=== PATIENT | female | born 1985 | race Caucasian/White ===

== ENCOUNTER 2016-07-15 17:42 | Emergency (ER) | payer OTHER ==
--- NOTE | 2016-07-15 18:26 | ERPHSYRPT ---
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 MOTHER IN ROOM. Timing/Duration: week(s) (07/05) Quality: sharpness Head Pain Location: frontal, temporal, parietal Severity of Pain-Max: severe Severity of Pain-Current: severe Recent Head Trauma: occasional headaches Modifying Factors: Improves With: medication Associated Symptoms: neck pain, sensitive to light Previous symptoms: same symptoms as today Hx Tetanus, Diphtheria Vaccination/Date Given: Yes Hx Influenza Vaccination/Date Given: No Hx Pneumococcal Vaccination/Date Given: No <MARTITA HART - Last Filed: 07/15/16 19:03> <JOSE LUIS MONTOYA - Last Filed: 07/15/16 21:43> - History of Present Illness Time Seen by Provider: 07/15/16 18:07 Physician History: The patient is a 31-year-old female with her mother complaining of a headache for about a week and a half. She has migraine headaches periodically on the left side of her face and head and this one feels like a typical migraine but it has lasted longer than usual. Her face on the left side has been twitching intermittently and her left neck and left shoulders have been painful. She vomited once today. She avoids light. (MARTITA HART) Allergies/Adverse Reactions: ketorolac tromethamine [From Toradol] Allergy (Intermediate, Verified 07/15/16 17:55) Hives/ aggressive Home Medications: Alprazolam [Xanax 0.25 mg] 0.25 mg PO BIDPRN PRN 02/11/16 [History] Levothyroxine Sodium 25 Mcg [Synthroid 25 Mcg] 25 mcg PO DAILY 02/11/16 [ History] - Review of Systems Constitutional: No Fever, No Chills Eyes: Photophobia Ears, Nose, & Throat: No Symptoms Respiratory: No Cough, No Dyspnea Cardiac: No Chest Pain, No Edema, No Syncope Abdominal/Gastrointestinal: No Abdominal Pain, No Nausea, No Vomiting, No Diarrhea Genitourinary Symptoms: No Dysuria Musculoskeletal: No Back Pain, No Neck Pain Skin: No Rash Neurological: Headache Psychological: No Symptoms Endocrine: No Symptoms Hematologic/Lymphatic: No Symptoms Immunological/Allergic: No Symptoms All Other Systems: Reviewed and Negative <MARTITA HART - Last Filed: 07/15/16 19:03> - Past Medical History Pertinent Past Medical History: Yes Neurological History: No Pertinent History ENT History: No Pertinent History Cardiac History: No Pertinent History Respiratory History: No Pertinent History Endocrine Medical History: Hypothyroidism Musculoskeletal History: No Pertinent History GI Medical History: No Pertinent History History: No Pertinent History Psycho-Social History: Anxiety Female Reproductive Disorders: Other Other Medical History: OVARIAN CYSTS - Past Surgical History Past Surgical History: Yes Neuro Surgical History: No Pertinent History Cardiac: No Pertinent History Respiratory: No Pertinent History Gastrointestinal: No Pertinent History Genitourinary: No Pertinent History, Other Musculoskeletal: No Pertinent History Female Surgical History: Section Other Surgical History: cyst removed from urethra, T&A - Social History Smoking Status: Current every day smoker How long have you smoked: 13 YEARS Exposure to second hand smoke: Yes Drug Use: none Patient Lives Alone: No - Female History Hx Last Menstrual Period: 07/15/2016 Hx Now: Yes <MARTITA HART - Last Filed: 07/15/16 19:03> - Physical Exam General Appearance: moderate distress Eye Exam: PERRL/EOMI, eyes nml inspection, photophobia Ears, Nose, Throat Exam: normal ENT inspection, moist mucous membranes Neck Exam: other (tender to palpation of left neck muscles. 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 Exam: normal speech, PERRL, No facial droop Coordination/Gait Exam: normal cerebellar function Motor/Sensory Exam: no motor deficit, no sensory deficit Skin Exam: normal color, warm, dry, No rash SpO2 Interpretation: normal SpO2: 99 Oxygen Delivery: Room Air <MARTITA HART - Last Filed: 07/15/16 19:03> - CT Exams Head CT Interpretation: Tele-radiologist Report, No/Intracranial Hemorrhag <JOSE LUIS MONTOYA - Last Filed: 07/15/16 21:43> Ordered Tests: Active Orders 24 hr Category Date Time Status IV Insertion STAT Care 07/15/16 18:27 Active HEAD WITHOUT CONTRAST [CT] Stat Exams 07/15/16 19:16 Taken CBC W DIFF Stat Lab 07/15/16 19:30 Completed HCG,QUALITATIVE URINE Stat Lab 07/15/16 19:16 Completed Urine Triage Profile Stat Lab 07/15/16 19:25 Completed Medication Summary Discontinued Medications Generic Name Dose Route Start Last Admin Trade Name Haydee PRN Reason Stop Dose Admin Acetaminophen/Hydrocodone Bitart 2 tab 07/15/16 21:13 07/15/16 21:28 [place] 10/325 Mg Tablet PO 07/15/16 21:14 2 tab SENT HOME W/ PATIENT ONE Administration Acetaminophen/Hydrocodone Bitart Confirm 07/15/16 21:22 [place] 5/325 Mg Administered 07/15/16 21:23 Dose 2 tab .ROUTE .STK-MED ONE Acetaminophen/Hydrocodone Bitart Confirm 07/15/16 21:25 [place] 10/325 Mg Tablet Administered 07/15/16 21:26 Dose 2 tab .ROUTE .STK-MED ONE Dihydroergotamine Mesylate 1 mg 07/15/16 18:28 07/15/16 19:02 Dhe 1 Mg IV 07/15/16 18:29 Not Given STAT ONE Fentanyl Citrate 100 mcg 07/15/16 20:16 07/15/16 20:25 Sublimaze 100 Mcg/2 Ml IV 07/15/16 20:17 100 mcg STAT ONE Administration Fentanyl Citrate Confirm 07/15/16 20:19 Sublimaze 100 Mcg/2 Ml Administered 07/15/16 20:20 Dose 100 mcg .ROUTE .STK-MED ONE Hydromorphone HCl 1 mg 07/15/16 21:08 07/15/16 21:12 Dilaudid 1 Mg/Ml Injection IV 07/15/16 21:09 1 mg STAT ONE Administration Hydromorphone HCl Confirm 07/15/16 21:10 Dilaudid 1 Mg/Ml Injection Administered 07/15/16 21:11 Dose 1 mg .ROUTE .STK-MED ONE Sodium Chloride 1,000 mls @ 999 mls/hr 07/15/16 18:27 07/15/16 18:59 Sodium Chloride 0.9% 1000 Ml IV 07/15/16 19:27 999 mls/hr .Q1H1M STA Administration Sodium Chloride Confirm 07/15/16 18:58 Sodium Chloride 0.9% 1000 Ml Administered 07/15/16 18:59 Dose 1,000 mls @ ud .ROUTE .STK-MED ONE Metoclopramide HCl 10 mg 07/15/16 18:27 07/15/16 19:05 Reglan 10 Mg/2 Ml IV 07/15/16 18:28 10 mg STAT ONE Administration Metoclopramide HCl Confirm 07/15/16 19:04 Reglan 10 Mg/2 Ml Administered 07/15/16 19:05 Dose 10 mg .ROUTE .STK-MED ONE Ondansetron HCl 4 mg 07/15/16 20:16 07/15/16 20:25 Zofran 4 Mg/2 Ml Vial IV 07/15/16 20:17 4 mg STAT ONE Administration Ondansetron HCl Confirm 07/15/16 20:20 Zofran 4 Mg/2 Ml Vial Administered 07/15/16 20:21 Dose 4 mg .ROUTE .STK-MED ONE Sumatriptan Succinate 6 mg 07/15/16 18:59 07/15/16 19:24 Imitrex 6 Mg/0.5 Ml SQ 07/15/16 19:00 Not Given STAT STA Sumatriptan Succinate Confirm 07/15/16 19:04 Imitrex 6 Mg/0.5 Ml Administered 07/15/16 19:05 Dose 6 mg SQ .STK-MED ONE Lab/Rad Data: Laboratory Result Diagrams 07/15/16 19:30 Laboratory Results 07/15/16 07/15/16 07/15/16 Range/Units 19:30 19:25 19:16 WBC 11.0 H (4.0-10.5) K/mm3 RBC 4.49 (4.1-5.4) M/mm3 Hgb 14.0 (12.0-16.0) gm/dl Hct 39.2 (35-47) % MCV 87.3 (78-100) fl MCH 31.2 (26-32) pg MCHC 35.7 (32-36) g/dl RDW 13.0 (11.5-14.0) % Plt Count 322 (150-450) K/mm3 MPV 8.3 (6-9.5) fl Gran % 54.0 (36.0-66.0) % Lymphocytes % 36.9 (24.0-44.0) % Monocytes % 7.4 (0.0-12.0) % Eosinophils % 1.5 (0.00-5.0) % Basophils % 0.2 (0.0-0.4) % Basophils # 0.02 (0-0.4) Urine HCG, Qual NEGATIVE (Negative) Urine Opiates Level NEG. (NEGATIVE) Ur Methadone NEG. (NEGATIVE) Urine Barbiturates NEG. (NEGATIVE) Ur Phencyclidine (PCP) NEG. (NEGATIVE) Urine Amphetamine NEG. (NEGATIVE) U Benzodiazepine Level NEG. (NEGATIVE) Urine Cocaine NEG. (NEGATIVE) Urine Marijuana (THC) NEG. (NEGATIVE) <MARTITA HART - Last Filed: 07/15/16 19:03> - Progress Counseled pt/family regarding: diagnosis, need for follow-up, rad results <JOSE LUIS MONTOYA - Last Filed: 07/15/16 21:43> - Progress Progress Note: 07/15/16 19:03 Pt care discussed and care transferred to Dr Montoya at 19:00. (MARTITA HART) 07/15/16 21:01 PATIENT ADMINISTERED IV FENTANYL 0.1MG, DILAUDID 1MG IV WITH MODERATE RELIEF OF PAIN DISCOMFORT 07/15/16 21:34 (JOSE LUIS MONTOYA) <MARTITA HART - Last Filed: 07/15/16 19:03> - Departure Time of Disposition: 21:46 Departure Disposition: Home Critical Care Time: No <JOSE LUIS MONTOYA - Last Filed: 07/15/16 21:43> - Departure Clinical Impression: ACUTE CEPHALGIA Condition: Stable Referrals: RAYSA GONZALEZ MD [Primary Care Provider] - Instructions: Headache Additional Instructions: FIORICET WITH CODEINE EVERY 4 HOURS NEEDED FOR PAIN DISCOMFORT. ZOFRAN 4MG EVERY 4 HOURS FOR NAUSEA. CONSULT YOUR FAMILY PHYSICIAN FOR EVALUATION TOMORROW FOR EVALUATION. RETURN TO EMERGENCY FOR RECURRENT PAIN DISCOMFORT. Prescriptions: Codeine/Butalbit/Acetamin/Caff [Fioricet-Cod [id number] Cap] 1 each PO Q4HPRN PRN #20 capsule PRN Reason: Pain Ondansetron [Zofran Odt] 4 mg PO Q4H PRN PRN #5 tab.rapdis PRN Reason: Nausea
[2016-07-15] MEDS ORDERED: Sodium Chloride 0.9% 1000 ML 1,000 ML IV STA (18:27)
[2016-07-15] MEDS ORDERED: Reglan 10 MG/2 ML IV ONE (18:27)
[2016-07-15] MEDS ORDERED: DHE IV ONE (18:28)
[2016-07-15] MEDS ORDERED: Sodium Chloride 0.9% 1000 ML 1,000 ML ONE (18:58)
[2016-07-15] MEDS ORDERED: Imitrex 6 MG/0.5 ML SQ STA (18:59)
[2016-07-15] MEDS ORDERED: Imitrex 6 MG/0.5 ML SQ ONE (19:04)
[2016-07-15] MEDS ORDERED: Reglan 10 MG/2 ML ONE (19:04)
[2016-07-15 19:36] LABS: BASOPHIL % 0.2 % (0.0-0.4); Eosinophil % 1.5 % (0.00-5.0); Lymphocytes % 36.9 % (24.0-44.0); Mean Cell Volume 87.3 fl (78-100); Mean Corpuscular Hemoglobin 31.2 pg (26-32); Mean Platelet Volume 8.3 fl (6-9.5); Monocytes % 7.4 % (0.0-12.0); Platelet Count 322 K/mm3 (150-450); Red Blood Count 4.49 M/mm3 (4.1-5.4)
[2016-07-15] MEDS ORDERED: Zofran 4 MG/2 ML VIAL IV ONE (20:16)
[2016-07-15] MEDS ORDERED: SUBLIMAZE 100 MCG/2 ML IV ONE (20:16)
[2016-07-15] MEDS ORDERED: SUBLIMAZE 100 MCG/2 ML ONE (20:19)
[2016-07-15] MEDS ORDERED: Zofran 4 MG/2 ML VIAL ONE (20:20)
[2016-07-15] MEDS ORDERED: DILAUDID 1 MG/ML INJECTION IV ONE (21:08)
[2016-07-15] MEDS ORDERED: DILAUDID 1 MG/ML INJECTION ONE (21:10)
[2016-07-15] MEDS ORDERED: Norco 10/325 MG Tablet PO ONE (21:13)
[2016-07-15] MEDS ORDERED: NORCO 5/325 MG ONE (21:22)
[2016-07-15] MEDS ORDERED: Norco 10/325 MG Tablet ONE (21:25)
[2016-07-15 21:31] VITALS: BP 140/80; PULSE 72
[2016-07-15 21:53] VITALS: O2SAT 97
--- NOTE | 2016-07-16 08:34 | XRAY ---
Indication: Left-sided headache. Multiple contiguous axial images obtained through the head without contrast. Comparison: May 04, 2006 Again normal appearing brain parenchyma, ventricles, and bony calvarium. Visualized paranasal sinuses and mastoid air cells are pneumatized and clear. Impression: Stable normal CT head without contrast exam. CT DI is 69.25
== END 2016-07-15 21:57 | disposition home or self-care (01) ==
LOC: ED 17:42
DX: R51 Headache (principal); M54.2 Cervicalgia; M25.512 Pain in left shoulder
CPT/HCPCS: 36000; 36415; 70450; 80307; 84703; 85025; 96360; 96374; 96375; 99283; J1110; J1170; J2405; J3010; J3030

== ENCOUNTER 2016-08-29 16:52 | Emergency (ER) | payer SELFPAY ==
[2016-08-29 17:03] VITALS: PULSE 116; O2SAT 99
--- NOTE | 2016-08-29 17:20 | ERPHSYRPT ---
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 rt facial droop noted. no neuro deficit to upper/lower extremities. strong equal pulses and svp. pupils kenji. denies pain--'just feels weird when i smile'. had bells palsy in 2008. states last alcohol at 0300 Physician History: The patient is a 31-year-old female with a friend complaining of right-sided facial numbness and drooping that began half an hour ago. She also complains of some numbness in her right arm all the way down to her fingertips. She is able to talk but does so on easily because of the drooping of the right side of the face. She had Mireles's palsy in 2008. He Timing/Duration: hour(s) (/2) Severity: moderate Character of Deficits: new weakness, Right Facial, RUE Deficits: weak Baseline/Normal Cognition: alert oriented x 3 Current Cognition: alert oriented x 3 Baseline Gait: walks w/o assistance Associated Symptoms: denies symptoms Allergies/Adverse Reactions: ketorolac tromethamine [From Toradol] Allergy (Intermediate, Verified 08/29/16 17:03) Hives/ aggressive Home Medications: Alprazolam [Xanax 0.25 mg] 0.25 mg PO BIDPRN PRN 02/11/16 [History] Levothyroxine Sodium 25 Mcg [Synthroid 25 Mcg] 25 mcg PO DAILY 02/11/16 [ History] Hx Tetanus, Diphtheria Vaccination/Date Given: Yes Hx Influenza Vaccination/Date Given: Yes Hx Pneumococcal Vaccination/Date Given: No Immunizations Up to Date: Yes - Review of Systems Constitutional: No Fever, No Chills Eyes: No Symptoms Ears, Nose, & Throat: No Symptoms Respiratory: No Cough, No Dyspnea Cardiac: No Chest Pain, No Edema, No Syncope Abdominal/Gastrointestinal: No Abdominal Pain, No Nausea, No Vomiting, No Diarrhea Genitourinary Symptoms: No Dysuria Musculoskeletal: No Back Pain, No Neck Pain Skin: No Rash Neurological: Other (Numbess and drooping of right face. Numbness to right arm and hand) Psychological: No Symptoms Endocrine: No Symptoms Hematologic/Lymphatic: No Symptoms Immunological/Allergic: No Symptoms All Other Systems: Reviewed and Negative - Past Medical History Pertinent Past Medical History: Yes Neurological History: No Pertinent History ENT History: No Pertinent History Cardiac History: No Pertinent History Respiratory History: No Pertinent History Endocrine Medical History: Hypothyroidism Musculoskeletal History: No Pertinent History GI Medical History: No Pertinent History History: No Pertinent History Psycho-Social History: Anxiety Female Reproductive Disorders: Other Other Medical History: OVARIAN CYSTS. bells palsy - Past Surgical History Past Surgical History: Yes Neuro Surgical History: No Pertinent History Cardiac: No Pertinent History Respiratory: No Pertinent History Gastrointestinal: No Pertinent History Genitourinary: No Pertinent History, Other Musculoskeletal: No Pertinent History Female Surgical History: Section, Tubal Ligation Other Surgical History: cyst removed from urethra, T&A. uterine ablasion - Social History Smoking Status: Current every day smoker How long have you smoked: 13 YEARS Exposure to second hand smoke: No Drug Use: none Patient Lives Alone: No - Female History Hx Last Menstrual Period: 4 weeks ago Hx Now: Yes - Nursing Vital Signs Nursing Vital Signs: Initial Vital Signs Temperature 98.7 F Temperature Source Oral Pulse Rate 116 Respiratory Rate 20 Blood Pressure [Right Arm] 112/76 Pain Intensity 0 - [place] Coma Scale Best Eye Response ([place]ana): (4) open spontaneously Best Verbal Response ([place]): (5) oriented Best Motor Response ([place]): (6) obeys commands Yovana Total: 15 - Physical Exam Eye Exam: bilateral eye: normal inspection, PERRL, EOMI Ears, Nose, Throat Exam: normal ENT inspection, moist mucous membranes Neck Exam: normal inspection, non-tender, supple Respiratory: normal breath sounds, lungs clear, airway intact, No respiratory distress Cardiovascular: regular rate/rhythm, No edema Gastrointestinal: soft, No tenderness, No distention Pelvic Exam: not done Rectal Exam: not done Back Exam: normal inspection Extremity Exam: normal inspection, No pedal edema Mental Status: alert, oriented x 3 lvn lpn Exam: facial droop (right face, equal rise and fall of bilateral eyebrows and lids. Smiles shows only rise of left side of mouth. Tongue is midline.), facial paresthesias Coordination/Gait: normal finger to nose, normal gait Motor/Sensory: no motor deficit, no sensory deficit Skin Exam: normal color, warm, dry, No rash SpO2 Interpretation: normal SpO2: 99 Oxygen Delivery: Room Air - CT Exams Head CT Interpretation: Tele-radiologist Report, No/Intracranial Hemorrhag Ordered Tests: Active Orders 24 hr Category Date Time Status IV Insertion STAT Care 08/29/16 17:37 Active HEAD WITHOUT CONTRAST [CT] Stat Exams 08/29/16 17:27 Taken BMP Stat Lab 08/29/16 17:46 Completed CBC W DIFF Stat Lab 08/29/16 17:46 Completed PROTIME WITH INR Stat Lab 08/29/16 17:46 Received Lab/Rad Data: Laboratory Result Diagrams 08/29/16 17:46 08/29/16 17:46 Laboratory Results 08/29/16 08/29/16 Range/Units 17:46 17:46 WBC 16.4 H (4.0-10.5) K/mm3 RBC 4.81 (4.1-5.4) M/mm3 Hgb 14.9 (12.0-16.0) gm/dl Hct 41.9 (35-47) % MCV 87.1 (78-100) fl MCH 31.0 (26-32) pg MCHC 35.6 (32-36) g/dl RDW 13.3 (11.5-14.0) % Plt Count 370 (150-450) K/mm3 MPV 8.2 (6-9.5) fl Gran % 63.4 (36.0-66.0) % Lymphocytes % 27.5 (24.0-44.0) % Monocytes % 8.2 (0.0-12.0) % Eosinophils % 0.7 (0.00-5.0) % Basophils % 0.2 (0.0-0.4) % Basophils # 0.03 (0-0.4) Sodium 141 (136-145) mEq/L Potassium 4.0 (3.5-5.1) mEq/L Chloride 105 (98-107) mEq/L Carbon Dioxide 28.0 (21-32) mEq/L Anion Gap 12.0 (5-15) MEQ/L BUN 9 (9-20) mg/dL Creatinine 0.79 (0.55-1.30) mg/dl Estimated GFR > 60 ML/MIN Glucose 92 (70-110) MG/DL Calcium 9.0 (8.5-10.1) mg/dL - Progress Progress: unchanged Counseled pt/family regarding: lab results, diagnosis, rad results - Departure Time of Disposition: 18:18 Departure Disposition: Transfer (transfer to [facility] ER per Dr Goodman and Dr Bundy) Clinical Impression: Neurologic abnormality Condition: Good Critical Care Time: Yes Critical Care Time(excluding separately billable procedures): 30-74 minutes
[2016-08-29 17:51] LABS: BASOPHIL % 0.2 % (0.0-0.4); Eosinophil % 0.7 % (0.00-5.0); Granulocytes % 63.4 % (36.0-66.0); Lymphocytes % 27.5 % (24.0-44.0); Mean Cell Volume 87.1 fl (78-100); Mean Platelet Volume 8.2 fl (6-9.5); Monocytes % 8.2 % (0.0-12.0); Platelet Count 370 K/mm3 (150-450); Red Blood Count 4.81 M/mm3 (4.1-5.4); Red Cell Distribution Width 13.3 % (11.5-14.0); White Blood Count 16.4 K/mm3 (4.0-10.5)
[2016-08-29 18:00] LABS: BLOOD UREA NITROGEN 9 mg/dL (9-20); CHLORIDE 105 mEq/L (98-107); Glucose 92 MG/DL (70-110); SODIUM 141 mEq/L (136-145)
[2016-08-29 18:09] VITALS: BP 112/76
[2016-08-29 18:40] LABS: INR 1.09 (0.8-3.0); PROTIME 12.2 SECONDS (9.95-12.35)
--- NOTE | 2016-08-30 08:48 | XRAY ---
Indication: Right facial droop and numbness. History of Mireles's palsy. Multiple contiguous axial images obtained through the head without contrast. Comparison: July 15, 2016. Again normal appearing brain parenchyma, ventricles, and bony calvarium. Visualized paranasal sinuses and mastoid air cells are pneumatized and clear. Impression: Stable normal CT head without contrast exam. Comment: Preliminary interpretation was made by [facility]. No discrepancy. CTDI 68.98
== END 2016-08-29 18:30 | disposition short-term general hospital (02) ==
LOC: ED 16:52
DX: R29.90 Unspecified symptoms and signs involving the nervous system (principal); R20.0 Anesthesia of skin; R29.810 Facial weakness; Z79.899 Other long term (current) drug therapy
CPT/HCPCS: 36000; 36415; 70450; 80048; 85025; 85610; 99284; 99285

== ENCOUNTER 2016-11-19 21:21 | Observation (INO) | payer OTHER ==
[2016-11-19] MEDS ORDERED: solu-MEDROL 125 MG IV ONE (22:22)
[2016-11-19] MEDS ORDERED: Sodium Chloride 0.9% 1000 ML 1,000 ML IV STA (22:22)
[2016-11-19] MEDS ORDERED: DUONEB 0.5-3 MG/3 ml Neb IH ONE ×2 (22:22→22:37)
[2016-11-19] MEDS ORDERED: Vistaril 50 MG/ML IM ONE ×2 (22:30→22:34)
[2016-11-19] MEDS ORDERED: Sodium Chloride 0.9% 1000 ML 1,000 ML ONE (22:34)
[2016-11-19] MEDS ORDERED: solu-MEDROL 125 MG ONE (22:34)
[2016-11-19 22:43] LABS: BASOPHIL % 0.1 % (0.0-0.4); Eosinophil % 0.1 % (0.00-5.0); Granulocytes % 84.2 % (36.0-66.0); Lymphocytes % 9.5 % (24.0-44.0); Mean Cell Volume 84.5 fl (78-100); Mean Corpuscular Hemoglobin 30.8 pg (26-32); Mean Platelet Volume 8.4 fl (6-9.5); Monocytes % 6.1 % (0.0-12.0); Platelet Count 377 K/mm3 (150-450); Red Blood Count 4.51 M/mm3 (4.1-5.4); Red Cell Distribution Width 13.3 % (11.5-14.0); White Blood Count 14.3 K/mm3 (4.0-10.5)
[2016-11-19 22:54] LABS: Lactic Acid 3.1 (0.4-2.0)
[2016-11-19 23:01] LABS: ANION GAP 16.7 MEQ/L (5-15); BLOOD UREA NITROGEN 11 mg/dL (9-20); CHLORIDE 104 mEq/L (98-107); Carbon Dioxide 21.7 mEq/L (21-32); Glucose 132 MG/DL (70-110); MAGNESIUM 1.7 mg/dL (1.8-2.4); Potassium 3.3 mEq/L (3.5-5.1); SODIUM 139 mEq/L (136-145)
--- NOTE | 2016-11-19 23:13 | ERPHSYRPT ---
- History of Present Illness Time Seen by Provider: 11/19/16 22:09 Source: patient, family Patient Subjective Stated Complaint: Pt states she has not felt well (cough, sob ) since Tuesday and has been getting worse. She was seen at the [facility] today and given rocephin and a steroid shot. She felt a little better but then got really short of breath a couple of hourss ago. She took two nebulizer treatments without any relief. Pt is supposed to start a Zpack tomorrow Triage Nursing Assessment: Pt alert and oriented x3. skin pink warm and dry. afebrile. expiratory wheezes noted. nonproductive cough Physician History: CC: short of air Hx: 31 y/o patient of Dr Gonzalez with hx of childhood asthma but none since. She states her allergies flaired up. She has worsened wheezing and shortness of breath. She saw [facility] today and had negative cxr, IM rocephin and steroids were given. She has neb Rx and Z pack Rx to start tomorrow. Tonite worse short of breath and wheezing over the past couple of hours. Feels a burning in her chest with coughing. ALL: toradol Meds: Synthroid and xanax and adipex ILL: Childhood asthma Social: Smoker LMP 2 weeks ago Allergies/Adverse Reactions: ketorolac tromethamine [From Toradol] Allergy (Intermediate, Verified 11/19/16 21:58) Hives/ aggressive Home Medications: Alprazolam [Xanax 0.25 mg] 0.25 mg PO BIDPRN PRN 02/11/16 [History] Levothyroxine Sodium 25 Mcg [Synthroid 25 Mcg] 25 mcg PO DAILY 02/11/16 [ History] Phentermine HCl [Adipex-P] 37.5 mg PO DAILY 11/19/16 [History] Hx Tetanus, Diphtheria Vaccination/Date Given: Yes (2015) Hx Influenza Vaccination/Date Given: Yes Hx Pneumococcal Vaccination/Date Given: No - Review of Systems Constitutional: No Fever, No Chills Eyes: No Symptoms Ears, Nose, & Throat: Nose Congestion Respiratory: Cough, Dyspnea, Wheezing Cardiac: Chest Pain (burning) Abdominal/Gastrointestinal: No Vomiting, No Diarrhea Skin: No Rash Neurological: No Headache All Other Systems: Reviewed and Negative - Past Medical History Pertinent Past Medical History: Yes Neurological History: No Pertinent History ENT History: No Pertinent History Cardiac History: No Pertinent History Respiratory History: No Pertinent History Endocrine Medical History: Hypothyroidism Musculoskeletal History: No Pertinent History GI Medical History: No Pertinent History History: No Pertinent History Psycho-Social History: Anxiety Female Reproductive Disorders: Other Other Medical History: PCOS. bells palsy - Past Surgical History Past Surgical History: Yes Neuro Surgical History: No Pertinent History Cardiac: No Pertinent History Respiratory: No Pertinent History Gastrointestinal: No Pertinent History Genitourinary: No Pertinent History, Other Musculoskeletal: No Pertinent History Female Surgical History: Section, Tubal Ligation Other Surgical History: cyst removed from urethra, T&A. uterine ablasion - Social History Smoking Status: Current every day smoker How long have you smoked: 13 YEARS Exposure to second hand smoke: No Drug Use: none Patient Lives Alone: No - Female History Hx Last Menstrual Period: 11/07/2016 Hx Now: Yes - Nursing Vital Signs Nursing Vital Signs: Initial Vital Signs Temperature 98.2 F Temperature Source Oral Pulse Rate 114 Respiratory Rate 20 Blood Pressure [Right Arm] 104/68 Pain Intensity 5 - Physical Exam General Appearance: alert, other (anxious, short of breath) Eye Exam: PERRL/EOMI Ears, Nose, Throat Exam: pharyngeal erythema, No tonsillar exudate Neck Exam: normal inspection, non-tender, supple Respiratory Exam: wheezing Cardiovascular/Chest Exam: normal heart sounds, regular rate/rhythm Abdominal/Gastrointestinal Exam: soft, No tenderness, No distention Neurologic Exam: alert, oriented x 3, cooperative, sensation nml, No motor deficits Skin Exam: warm, dry, No rash SpO2 Interpretation: normal SpO2: 99 Oxygen Delivery: Room Air - Course Nursing assessment & vital signs reviewed: Yes Ordered Tests: Active Orders 24 hr Category Date Time Status EKG-ER Only STAT Care 11/20/16 00:59 Active IV Insertion STAT Care 11/19/16 22:22 Active NPO (ED) STAT Care 11/20/16 00:59 Active Pulse Oximetry (ED) STAT Care 11/19/16 22:22 Active BMP Stat Lab 11/19/16 22:39 Completed CBC W DIFF Stat Lab 11/19/16 22:39 Completed D-DIMER QUANTITATION Stat Lab 11/19/16 22:39 Completed HCG QUALITATIVE,SERUM Stat Lab 11/19/16 22:39 Completed Lactic Acid Stat Lab 11/19/16 22:37 Completed Lactic Acid Stat Lab 11/20/16 00:53 Ordered MAGNESIUM Stat Lab 11/19/16 22:39 Completed Peak Expiratory Flow Rate ONCE RT 11/20/16 00:22 Completed Respiratory Nebulizer STAT RT 11/19/16 22:30 Completed Respiratory Nebulizer STAT RT 11/19/16 23:15 Completed Respiratory Nebulizer STAT RT 11/20/16 00:22 Completed Medication Summary Generic Name Dose Route Start Last Admin Trade Name Freq PRN Reason Stop Dose Admin Lactated Ringer's 1,000 mls @ 999 mls/hr 11/20/16 00:23 11/20/16 00:30 Lactated Ringers IV 11/20/16 01:23 999 mls/hr .Q1H1M ONE Administration Magnesium Sulfate/Dextrose 100 mls @ 100 mls/hr 11/20/16 00:30 11/20/16 00:30 Magnesium 1 Gm / 100 Ml D5w IV 11/20/16 02:29 100 mls/hr Q1H SHREE Administration Azithromycin 250 mls @ 125 mls/hr 11/20/16 00:55 Zithromax 500 Mg/ 250 Ml Nacl Premix IV 11/20/16 02:54 STAT ONE Discontinued Medications Generic Name Dose Route Start Last Admin Trade Name Freq PRN Reason Stop Dose Admin Hydrocodone Bitart/Acetaminophen 1 tab 11/20/16 00:23 11/20/16 00:30 [place] 5/325 Mg PO 11/20/16 00:24 1 tab STAT ONE Administration Hydrocodone Bitart/Acetaminophen Confirm 11/20/16 00:29 [place] 5/325 Mg Administered 11/20/16 00:30 Dose 1 tab .ROUTE .STK-MED ONE Albuterol Sulfate 2.5 mg 11/19/16 23:14 11/19/16 23:41 Proventil 2.5 Mg/3 Ml Neb IH 11/19/16 23:15 2.5 mg STAT ONE Administration Albuterol Sulfate Confirm 11/19/16 23:40 Proventil 2.5 Mg/3 Ml Neb Administered 11/19/16 23:41 Dose 2.5 mg IH .STK-MED ONE Albuterol Sulfate 2.5 mg 11/20/16 00:22 11/20/16 00:34 Proventil 2.5 Mg/3 Ml Neb IH 11/20/16 00:23 2.5 mg STAT ONE Administration Albuterol Sulfate Confirm 11/20/16 00:31 Proventil 2.5 Mg/3 Ml Neb Administered 11/20/16 00:32 Dose 2.5 mg IH .STK-MED ONE Albuterol/Ipratropium 3 ml 11/19/16 22:22 11/19/16 22:38 Duoneb 0.5-3 Mg/3 Ml Neb IH 11/19/16 22:23 3 ml STAT ONE Administration Albuterol/Ipratropium Confirm 11/19/16 22:37 Duoneb 0.5-3 Mg/3 Ml Neb Administered 11/19/16 22:38 Dose 3 ml IH .STK-MED ONE Hydroxyzine HCl 50 mg 11/19/16 22:30 11/19/16 22:38 Vistaril 50 Mg/Ml IM 11/19/16 22:31 50 mg STAT ONE Administration Hydroxyzine HCl Confirm 11/19/16 22:34 Vistaril 50 Mg/Ml Administered 11/19/16 22:35 Dose 50 mg IM .STK-MED ONE Sodium Chloride 1,000 mls @ 999 mls/hr 11/19/16 22:22 11/19/16 22:38 Sodium Chloride 0.9% 1000 Ml IV 11/19/16 23:22 999 mls/hr .Q1H1M STA Administration Sodium Chloride Confirm 11/19/16 22:34 Sodium Chloride 0.9% 1000 Ml Administered 11/19/16 22:35 Dose 1,000 mls @ ud .ROUTE .STK-MED ONE Lactated Ringer's Confirm 11/20/16 00:29 Lactated Ringers Administered 11/20/16 00:30 Dose 1,000 mls @ ud IV .STK-MED ONE Methylprednisolone Sodium Succinate 125 mg 11/19/16 22:22 11/19/16 22:38 Solu-Medrol 125 Mg IV 11/19/16 22:23 125 mg STAT ONE Administration Methylprednisolone Sodium Succinate Confirm 11/19/16 22:34 Solu-Medrol 125 Mg Administered 11/19/16 22:35 Dose 125 mg .ROUTE .STK-MED ONE Lab/Rad Data: Laboratory Result Diagrams 11/19/16 22:39 11/19/16 22:39 Laboratory Results 11/19/16 11/19/16 11/19/16 Range/Units 22:39 22:39 22:39 WBC (4.0-10.5) K/mm3 RBC (4.1-5.4) M/mm3 Hgb (12.0-16.0) gm/dl Hct (35-47) % MCV (78-100) fl MCH (26-32) pg MCHC (32-36) g/dl RDW (11.5-14.0) % Plt Count (150-450) K/mm3 MPV (6-9.5) fl Gran % (36.0-66.0) % Lymphocytes % (24.0-44.0) % Monocytes % (0.0-12.0) % Eosinophils % (0.00-5.0) % Basophils % (0.0-0.4) % Basophils # (0-0.4) D-Dimer < 0.200 (0.00-0.49) mg/L Sodium 139 (136-145) mEq/L Potassium 3.3 L (3.5-5.1) mEq/L Chloride 104 (98-107) mEq/L Carbon Dioxide 21.7 (21-32) mEq/L Anion Gap 16.7 H (5-15) MEQ/L BUN 11 (9-20) mg/dL Creatinine 0.87 (0.55-1.30) mg/dl Estimated GFR > 60 ML/MIN Glucose 132 H (70-110) MG/DL Lactic Acid (0.4-2.0) Calcium 10.0 (8.5-10.1) mg/dL Magnesium 1.7 L (1.8-2.4) mg/dL Serum , Qual NEGATIVE (Negative) 11/19/16 11/19/16 Range/Units 22:39 22:37 WBC 14.3 H (4.0-10.5) K/mm3 RBC 4.51 (4.1-5.4) M/mm3 Hgb 13.9 (12.0-16.0) gm/dl Hct 38.1 (35-47) % MCV 84.5 (78-100) fl MCH 30.8 (26-32) pg MCHC 36.5 H (32-36) g/dl RDW 13.3 (11.5-14.0) % Plt Count 377 (150-450) K/mm3 MPV 8.4 (6-9.5) fl Gran % 84.2 H (36.0-66.0) % Lymphocytes % 9.5 L (24.0-44.0) % Monocytes % 6.1 (0.0-12.0) % Eosinophils % 0.1 (0.00-5.0) % Basophils % 0.1 (0.0-0.4) % Basophils # 0.02 (0-0.4) D-Dimer (0.00-0.49) mg/L Sodium (136-145) mEq/L Potassium (3.5-5.1) mEq/L Chloride (98-107) mEq/L Carbon Dioxide (21-32) mEq/L Anion Gap (5-15) MEQ/L BUN (9-20) mg/dL Creatinine (0.55-1.30) mg/dl Estimated GFR ML/MIN Glucose (70-110) MG/DL Lactic Acid 3.1 H (0.4-2.0) Calcium (8.5-10.1) mg/dL Magnesium (1.8-2.4) mg/dL Serum , Qual (Negative) - Progress Progress Note: 11/20/16 01:00 Pt still coughing and wheezing despite 3 nebs, solu medrol, 2L IVF, vistaril IM , po norco, IV mag sulfate rider. PEFR not bed though. She is very jittery and anxious. Called Dr Chowdary and will place in obs for asthmatic bronchitis. Will see patient in: hospital (observation) Counseled pt/family regarding: lab results, diagnosis, need for follow-up, rad results - Departure Time of Disposition: 01:01 Departure Disposition: Observation Clinical Impression: Asthmatic bronchitis, Shortness of breath, Anxiety Condition: Fair Critical Care Time: No Referrals: RAYSA GONZALEZ MD [Primary Care Provider] -
[2016-11-19] MEDS ORDERED: PROVENTIL 2.5 MG/3 ML NEB IH ONE ×2 (23:14→23:40)
[2016-11-20] MEDS ORDERED: PROVENTIL 2.5 MG/3 ML NEB IH ONE ×2 (00:22→00:31)
[2016-11-20] MEDS ORDERED: NORCO 5/325 MG PO ONE (00:23)
[2016-11-20] MEDS ORDERED: Lactated Ringers 1,000 ML IV ONE ×2 (00:23→00:29)
[2016-11-20] MEDS ORDERED: NORCO 5/325 MG ONE (00:29)
[2016-11-20] MEDS ORDERED: Magnesium 1 Gm / 100 Ml D5W*** 100 ML IV ONE ×2 (00:29→00:42)
[2016-11-20] MEDS: Magnesium 1 Gm / 100 Ml D5W*** 100 ML IV SCH ×2 (00:30→01:23)
[2016-11-20] MEDS ORDERED: Zithromax 500 MG/ 250 ML NaCl Premix 250 ML IV ONE (00:55)
[2016-11-20] MEDS ORDERED: Robitussin-Dm Syrup PO ONE (01:12)
[2016-11-20] MEDS ORDERED: ROCEPHIN 1 Gm-D5w 50 ml Bag** 1 G/50 ML IVPB IV ONE ×2 (01:18→01:36)
[2016-11-20] MEDS ORDERED: Sodium Chloride 0.9% 1000 ML 1,000 ML IV STA (01:18)
[2016-11-20 01:20] LABS: VBG BASE EXCESS -3.2 (-2.0-2.0); VBG CARBOXYHEMOGLOBIN 2.5 % T HGB (0.0-6.9); VBG HCO3- 19.5 meq/L (22-28); VBG HEMOGLOBIN 13.3; VBG O2 SATURATION 86.9 (95-100); VBG POTASSIUM 2.7 (3.5-5.1); VBG pH 7.45 (7.32-7.42)
[2016-11-20] MEDS ORDERED: POTASSIUM CHLORIDE 20 mEq IN WATER 100ML 100 ML IV ONE ×2 (01:22→01:36)
[2016-11-20] MEDS ORDERED: Sodium Chloride 0.9% 1000 ML 1,000 ML ONE (01:36)
[2016-11-20 01:53] LABS: Collection Type CLEAN CATCH
[2016-11-20 01:54] LABS: Bacteria FEW /HPF (NEGATIVE); COMPLETE URINE MICROSCOPIC? YES; Epithelial Cells MODERATE /HPF (FEW); Ph 5.5 (5-6); WBC 0-2 /HPF (0-5)
[2016-11-20] MEDS ORDERED: NORCO 5/325 MG PO PRN (02:42)
[2016-11-20] MEDS ORDERED: TYLENOL 325 MG PO PRN (02:42)
[2016-11-20] MEDS ORDERED: D5w/0.45NS W/ 40MEQ KCl 1000 Ml 1,000 ML IV SCH (02:42)
[2016-11-20] MEDS ORDERED: solu-MEDROL 125 MG IV SCH ×2 (02:42→12:00)
[2016-11-20] MEDS: DUONEB 0.5-3 MG/3 ml Neb IH SCH ×3 (03:52→10:42)
[2016-11-20] MEDS: Robitussin-Dm Syrup PO PRN ×2 (06:05→10:27)
[2016-11-20 06:23] LABS: BASOPHIL % 0.1 % (0.0-0.4); Granulocytes % 93.4 % (36.0-66.0); Lymphocytes % 5.4 % (24.0-44.0); Mean Cell Volume 86.5 fl (78-100); Mean Corpuscular Hemoglobin 30.4 pg (26-32); Mean Platelet Volume 8.6 fl (6-9.5); Monocytes % 1.1 % (0.0-12.0); Platelet Count 305 K/mm3 (150-450); Red Blood Count 4.01 M/mm3 (4.1-5.4); Red Cell Distribution Width 13.4 % (11.5-14.0); White Blood Count 14.5 K/mm3 (4.0-10.5)
[2016-11-20 06:54] LABS: ALBUMIN 3.4 g/dL (3.4-5.0); ALKALINE PHOSPHATASE 82 U/L (46-116); ANION GAP 14.8 MEQ/L (5-15); BILIRUBIN,TOTAL 0.2 mg/dL (0.2-1.0); BLOOD UREA NITROGEN 7 mg/dL (9-20); CHLORIDE 106 mEq/L (98-107); Carbon Dioxide 22.5 mEq/L (21-32); Glucose 185 MG/DL (70-110); Potassium 4.4 mEq/L (3.5-5.1); SGOT/AST 18 U/L (15-37); SGPT/ALT 16 U/L (12-78); SODIUM 139 mEq/L (136-145); Total Protein 6.7 gm/dL (6.4-8.2)
[2016-11-20 07:39] VITALS: O2SAT 97
--- NOTE | 2016-11-20 08:21 | XRAY ---
Indication: Cough. Bronchitis. Comparison: November 19, 2016. Portable chest again demonstrates normal heart, lungs, and bony thorax.
[2016-11-20] MEDS ORDERED: xanAX 0.25 MG PO PRN (09:19)
[2016-11-20] MEDS ORDERED: SYNTHROID 25 MCG PO SCH (10:00)
[2016-11-20] MEDS ORDERED: Zithromax 500 MG/ 250 ML NaCl Premix 500 MG/250 ML IVPB IV SCH (10:00)
--- NOTE | 2016-11-20 11:30 | PCM.HP ---
History of Present Illness - Chief Complaint Chief Complaint: Asthmatic Bronchitis Date: 11/20/16 History of Present Illness: is a 31 year old female. who has history of childhood asthma with no recent flairs and no use of home rescue inhaler for many years until the last week she has had progressively worsening cough and wheezing and shortness of breath. THis is worsened by her severe anxiety as well. She was seen at [facility] yesterday and given Rocepin and Kenalog and albuterol treatments and azithromycin to go home with. She was using nebulizer treatments at home and still short of breath after 5 treatments and thus presented to ED. She was wheezing and felt better after duoneb treatment. She was still using her addipex yesterday as well. She has no nausea , vomiting, diarrhea, and no fevers. - Review of Systems Constitutional: Fatigue, No Fever, No Chills Eyes: No Symptoms Ears, Nose, & Throat: No Symptoms Respiratory: Cough, Short Of Breath, Wheezing Cardiac: No Chest Pain, No Edema, No Syncope Abdominal/Gastrointestinal: No Abdominal Pain, No Nausea, No Vomiting, No Diarrhea Genitourinary Symptoms: No Dysuria Musculoskeletal: No Back Pain, No Neck Pain Skin: No Rash Neurological: No Dizziness, No Focal Weakness, No Sensory Changes Psychological: No Symptoms Endocrine: No Symptoms Hematologic/Lymphatic: No Symptoms Immunological/Allergic: No Symptoms Medications & Allergies Home Medications: Home Medication List Alprazolam [Xanax 0.25 mg] 0.25 mg PO BIDPRN PRN 02/11/16 [History Confirmed ] Levothyroxine Sodium 25 Mcg [Synthroid 25 Mcg] 25 mcg PO DAILY 02/11/16 [ History Confirmed 11/19/16] Albuterol Sulfate [Proair Hfa] 2 puff IH Q4H PRN #1 hfa.aer.ad 11/20/16 [Rx] Azithromycin 250 mg [Zithromax 250 MG TABLET] 250 mg PO ZPACK #0 tablet [Rx] Prednisone [Deltasone] 40 mg PO DAILY #10 tablet 11/20/16 [Rx] Allergies/Adverse Reactions: Allergies Allergy/AdvReac Type Severity Reaction Status Date / Time ketorolac tromethamine Allergy Intermediate Hives/ Verified 11/19/16 21:58 [From Toradol] aggressive - Past Medical History Past Medical History: Yes Neurological History: No Pertinent History ENT History: No Pertinent History Cardiac History: No Pertinent History Respiratory History: No Pertinent History Endocrine Medical History: Hypothyroidism Musculoskelatal History: No Pertinent History GI Medical History: No Pertinent History History: No Pertinent History Pyscho-Social History: Anxiety Reproductive Disorders: Other Comment: PCOS. bells palsy. 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 uterine ablasion - Social History Smoking Status: Current every day smoker How long have you smoked: 13 YEARS Exposure to second hand smoke: Yes Alcohol: Occasionally Drug Use: none - Physical Exam Vital Signs: Vital Signs - 24 hr Temp Pulse Resp BP Pulse Ox 11/20/16 10:42 100 H 18 97 11/20/16 07:38 97.9 F 115 H 20 116/60 97 11/20/16 06:45 96 H 17 96 11/20/16 03:30 99 H 16 98 11/20/16 03:05 97.7 F 99 H 15 131/75 99 11/20/16 01:36 98.6 F 104 H 20 131/69 97 11/20/16 01:02 99 11/20/16 00:50 114 H 24 142/88 99 11/20/16 00:34 114 H 20 98 11/19/16 23:58 102 H 20 104/68 100 11/19/16 23:41 96 H 21 97 11/19/16 22:55 84 20 120/74 99 11/19/16 22:39 99 11/19/16 22:38 109 H 22 99 11/19/16 21:48 98.2 F 104 H 26 H 138/79 98 General Appearance: no apparent distress Neurologic Exam: alert, oriented x 3, cooperative Eye Exam: No scleral icterus, No pale conjunctivae Ears, Nose, Throat Exam: moist mucous membranes Neck Exam: normal inspection, non-tender, supple Respiratory Exam: prolonged expirations, rhonchi, wheezing Cardiovascular Exam: regular rate/rhythm, normal heart sounds, normal peripheral pulses, No murmur Gastrointestinal/Abdomen Exam: soft, normal bowel sounds, No tenderness, No distention Extremity Exam: normal inspection, No calf tenderness, No pedal edema Skin Exam: warm, dry Results - Labs Lab/Micro Results: Lab Results-Last 24 Hours 11/20/16 11/20/16 11/20/16 Range/Units 06:03 06:06 06:06 WBC 14.5 H (4.0-10.5) K/mm3 RBC 4.01 L (4.1-5.4) M/mm3 Hgb 12.2 (12.0-16.0) gm/dl Hct 34.7 L (35-47) % MCV 86.5 (78-100) fl MCH 30.4 (26-32) pg MCHC 35.2 (32-36) g/dl RDW 13.4 (11.5-14.0) % Plt Count 305 (150-450) K/mm3 MPV 8.6 (6-9.5) fl Gran % 93.4 H (36.0-66.0) % Lymphocytes % 5.4 L (24.0-44.0) % Monocytes % 1.1 (0.0-12.0) % Eosinophils % 0.0 (0.00-5.0) % Basophils % 0.1 (0.0-0.4) % Basophils # 0.01 (0-0.4) Sodium 139 (136-145) mEq/L Potassium 4.4 (3.5-5.1) mEq/L Chloride 106 (98-107) mEq/L Carbon Dioxide 22.5 (21-32) mEq/L Anion Gap 14.8 (5-15) MEQ/L BUN 7 L (9-20) mg/dL Creatinine 0.67 (0.55-1.30) mg/dl Estimated GFR > 60 ML/MIN Glucose 185 H (70-110) MG/DL Lactic Acid 2.9 H (0.4-2.0) Calcium 8.8 (8.5-10.1) mg/dL Total Bilirubin 0.2 (0.2-1.0) mg/dL AST 18 (15-37) U/L ALT 16 (12-78) U/L Alkaline Phosphatase 82 (46-116) U/L Serum Total Protein 6.7 (6.4-8.2) gm/dL Albumin 3.4 (3.4-5.0) g/dL 11/20/16 Range/Units 08:00 WBC (4.0-10.5) K/mm3 RBC (4.1-5.4) M/mm3 Hgb (12.0-16.0) gm/dl Hct (35-47) % MCV (78-100) fl MCH (26-32) pg MCHC (32-36) g/dl RDW (11.5-14.0) % Plt Count (150-450) K/mm3 MPV (6-9.5) fl Gran % (36.0-66.0) % Lymphocytes % (24.0-44.0) % Monocytes % (0.0-12.0) % Eosinophils % (0.00-5.0) % Basophils % (0.0-0.4) % Basophils # (0-0.4) Sodium (136-145) mEq/L Potassium (3.5-5.1) mEq/L Chloride (98-107) mEq/L Carbon Dioxide (21-32) mEq/L Anion Gap (5-15) MEQ/L BUN (9-20) mg/dL Creatinine (0.55-1.30) mg/dl Estimated GFR ML/MIN Glucose (70-110) MG/DL Lactic Acid 3.1 H (0.4-2.0) Calcium (8.5-10.1) mg/dL Total Bilirubin (0.2-1.0) mg/dL AST (15-37) U/L ALT (12-78) U/L Alkaline Phosphatase (46-116) U/L Serum Total Protein (6.4-8.2) gm/dL Albumin (3.4-5.0) g/dL - Other Procedures and Tests Respiratory Therapy 11/20/16 07:00 Respiratory Nebulizer Q4H Assessment/Plan (1) Asthmatic bronchitis Status: Acute Qualifiers: Asthma complication type: with acute exacerbation Assessment & Plan: seh did well with the breathing treatments and has received IV steroids and antibiotic as well cxr and d-dimer negative. she still has wheezing but no signs of respiratory distress at this time and tolerating room air well she is feeling better she will continue on steroids at discharge and use albuterol q4h while awake for the next 4 days. The elevated lactic may be complicated by her addipex use and she was advised to not restart the addipex until resolution of the asthma exacerbations she was counseled on smoking cessation as well. Code(s): J45.909 - UNSPECIFIED ASTHMA, UNCOMPLICATED (2) Tobacco abuse Status: Chronic Code(s): Z72.0 - TOBACCO USE (3) Anxiety Status: Chronic Code(s): F41.9 - ANXIETY DISORDER, UNSPECIFIED
[2016-11-20 11:40] VITALS: BP 107/59; PULSE 119
--- NOTE | 2016-11-20 11:55 | PCM.DCORD ---
- Discharge Discharge Date: 11/20/16 Disposition: Home, Self-Care Condition: Fair Prescriptions: New Prednisone [Deltasone] 40 mg PO DAILY #10 tablet Albuterol Sulfate [Proair Hfa] 2 puff IH Q4H PRN #1 hfa.aer.ad PRN Reason: Shortness Of Breath/Wheezing Azithromycin 250 mg [Zithromax 250 MG TABLET] 250 mg PO ZPACK #0 tablet Continue Levothyroxine Sodium 25 Mcg [Synthroid 25 Mcg] 25 mcg PO DAILY Alprazolam [Xanax 0.25 mg] 0.25 mg PO BIDPRN PRN PRN Reason: Anxiety Discontinued Phentermine HCl [Adipex-P] 37.5 mg PO DAILY Follow up with: RAYSA GONZALEZ MD [Primary Care Provider] - Forms: Patient Portal Information
[2016-11-20] MEDS ORDERED: ROCEPHIN 1 Gm-D5w 50 ml Bag** 1 G/50 ML IVPB IV SCH (22:00)
== END 2016-11-20 12:40 | disposition home or self-care (01) ==
LOC: ED 21:21 → MED SURG 11-20 02:36
PROVIDERS: ADMIT Family Medicine; ATTEND Family Medicine
DX: J45.909 Unspecified asthma, uncomplicated (principal); Z72.0 Tobacco use; F41.9 Anxiety disorder, unspecified
CPT/HCPCS: 36000; 36415; 71010; 80048; 80053; 81000; 82805; 83605; 83735; 84703; 85025; 85379; 87040; 87086; 93005; 93268; 94150; 94640; 94760; 96360; 96361; 96365; 96367; 96368; 96372; 96374; 99285; G0378; J0456; J0696; J2930; J3410; J3475; J3480; A9270-GY

== ENCOUNTER 2017-10-28 19:43 | Emergency (ER) | payer OTHER ==
--- NOTE | 2017-10-28 20:15 | ERPHSYRPT ---
- History of Present Illness Time Seen by Provider: 10/28/17 20:06 Source: patient Exam Limitations: no limitations Patient Subjective Stated Complaint: Stepped off the side of a step and twisted left knee Triage Nursing Assessment: Pt A&O x3, left knee swollen, pain at 5-6 while sitting, 10 while standing, took Tylenol and iced, doesn't appear to be in any other distress Physician History: 32-year-old white female arrives with complaint of pain in her left knee since 1699 today. Patient states she stepped off a curb and twisted her knee she states she has pain in the left knee anteriorly both inferior and superior to the left patella she states she is having troubles feeling her left foot. She has no others complaints. 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 Forearm orthe) Occurred: this afternoon (0 this afternoon) Quality: aching Severity of Pain-Max: moderate Severity of Pain-Current: moderate Lower Extremities Pain: knee: left Modifying Factors: Improves With: rest Associated Symptoms: none Allergies/Adverse Reactions: ketorolac tromethamine [From Toradol] Allergy (Intermediate, Verified 10/28/17 19:55) Hives/ aggressive Home Medications: ALPRAZolam [Xanax 0.25 mg] 0.25 mg PO BIDPRN PRN 02/11/16 [History] Levothyroxine Sodium 25 Mcg [Synthroid 25 Mcg] 25 mcg PO DAILY 02/11/16 [ History] Hx Tetanus, Diphtheria Vaccination/Date Given: Yes (2015) Hx Influenza Vaccination/Date Given: Yes Hx Pneumococcal Vaccination/Date Given: No Immunizations Up to Date: Yes - Review of Systems Constitutional: No Fever, No Chills Eyes: No Symptoms Ears, Nose, & Throat: No Symptoms Respiratory: No Cough, No Dyspnea Cardiac: No Chest Pain, No Edema, No Syncope Abdominal/Gastrointestinal: No Abdominal Pain, No Nausea, No Vomiting, No Diarrhea Genitourinary Symptoms: No Dysuria Musculoskeletal: Other (left knee pain) Skin: No Rash Neurological: Other (patient states decreased sensation left foot) Psychological: No Symptoms Endocrine: No Symptoms All Other Systems: Reviewed and Negative - Past Medical History Pertinent Past Medical History: Yes Neurological History: No Pertinent History ENT History: No Pertinent History Cardiac History: No Pertinent History Respiratory History: No Pertinent History Endocrine Medical History: Hypothyroidism Musculoskeletal History: No Pertinent History GI Medical History: No Pertinent History History: No Pertinent History Psycho-Social History: Anxiety Female Reproductive Disorders: Other Other Medical History: PCOS. bells palsy. sudo stroke in Aug related to stress rt side - Past Surgical History Past Surgical History: Yes Neuro Surgical History: No Pertinent History Cardiac: No Pertinent History Respiratory: No Pertinent History Gastrointestinal: No Pertinent History Genitourinary: No Pertinent History, Other Musculoskeletal: No Pertinent History Female Surgical History: Section, Tubal Ligation Other Surgical History: cyst removed from urethra, T&A. uterine ablasion - Social History Smoking Status: Current some day smoker How long have you smoked: 13 YEARS Exposure to second hand smoke: No Drug Use: none Patient Lives Alone: No - Female History Hx Last Menstrual Period: 10/25/2017 Hx Now: No - Nursing Vital Signs Nursing Vital Signs: Initial Vital Signs Temperature 97.3 F 10/28/17 19:45 Pulse Rate 81 10/28/17 19:45 Blood Pressure 157/102 10/28/17 19:45 O2 Sat by Pulse Oximetry 99 10/28/17 19:45 Pain Scale Pain Intensity 6 - Physical Exam General Appearance: mild distress Eyes, Ears, Nose, Throat Exam: moist mucous membranes Neck Exam: non-tender, supple Cardiovascular/Respiratory Exam: chest non-tender, normal breath sounds, regular rate/rhythm, no respiratory distress Gastrointestinal/Abdominal Exam: non-tender, guarding Hips Exam: bilateral: non-tender, normal inspection, normal range of motion, no evidence of injury Legs Exam: right leg: non-tender, normal inspection, normal range of motion, no evidence of injury, left leg: other (left knee tender with palpation anteriorly superior and inferior to ) Knees Exam: right knee: non-tender, normal inspection, normal range of motion, left knee: other (left knee tender with palpation anterior superior and inferior to the patella decreased range of motion left knee secondary to pain.) Ankle Exam: bilateral ankle: non-tender, normal inspection, normal range of motion, no evidence of injury Foot Exam: bilateral foot: non-tender, normal inspection, normal range of motion , no evidence of injury DTR - Lower Extremities Exam: ankle (R): 2+, ankle (L): 2+ Neuro/Tendon Exam: normal sensation, normal motor functions Mental Status Exam: alert, oriented x 3, cooperative Skin Exam: normal color, warm, dry SpO2 Interpretation: normal (99%) SpO2: 99 Oxygen Delivery: Room Air - Course Nursing assessment & vital signs reviewed: Yes - Radiology Exams Left Knee X-ray Interpretation: Interpreted by me, Negative, No Fracture, No Subluxation Ordered Tests: Active Orders 24 hr Category Date Time Status Manjeet Bandage Application -[facility] STAT Care 10/28/17 20:39 Active Crutches STAT Care 10/28/17 20:39 Active Immobilizer STAT Care 10/28/17 20:39 Active KNEE (3 VIEWS) Stat Exams 10/28/17 20:22 Taken Medication Summary Discontinued Medications Generic Name Dose Route Start Last Admin Trade Name Ericq PRN Reason Stop Dose Admin Hydrocodone Bitart/Acetaminophen 2 tab 10/28/17 20:39 [place] 5/325 Mg PO 10/28/17 20:40 SENT HOME W/ PATIENT ONE Hydrocodone Bitart/Acetaminophen Confirm 10/28/17 20:44 [place] 5/325 Mg Administered 10/28/17 20:45 Dose 2 tab .ROUTE .STVANCL-MED ONE - Progress Progress: improved Progress Note: 10/28/17 20:13 32-year-old white female with history of anxiety, polycystic ovary syndrome, Mireles's palsy, 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 X-ray of the left knee shows tenderness anteriorly superior and inferior and overlying patella there is decreased range of motion to the left knee there is full range of motion to left ankle toes and hip good capillary refill left foot sensation intact left toes. Patient states she drove herself here she states she is allergic to Toradol. Will go ahead and obtain an x-ray of her left knee X-ray patient's left knee no fracture no dislocation (my read) Will apply Manjeet wrap, immobilizer, provide patient with crutches. Will give patient [place] for pain 2 tablets to go. And prescription for 12 tablets. Patient is ice and elevate her left knee 24-48 hours. She is to follow-up with her company Doctor. She is return for acute distress or for acute distress or for severe symptoms. - Departure Time of Disposition: 20:36 Departure Disposition: Home Clinical Impression: Left knee pain Qualifiers: Chronicity: acute Qualified Code(s): M25.562 - Pain in left knee Strain of left knee Qualifiers: Encounter type: initial encounter Qualified Code(s): S86.912A - Strain of unspecified muscle(s) and tendon(s) at lower leg level, left leg, initial encounter Condition: Fair Critical Care Time: No Referrals: RAYSA GONZALEZ MD [Primary Care Provider] - Instructions: Knee Sprain (DC) Additional Instructions: Return home. Ice and elevate left knee 24-48 hours. Crutches weightbearing as tolerated. [place] as prescribed. Follow-up with your company . Return for acute distress or for severe symptoms. Your x-rays have been preliminarily read, they will be reread tomorrow morning, you'll be contacted if any discrepancies are noted. Prescriptions: Hydrocodone/Acetaminophen [[place] 5-325 Tablet] 1 each PO Q4-6HPRN PRN #12 tablet MDD 6 tablets PRN Reason: Pain
[2017-10-28] MEDS ORDERED: NORCO 5/325 MG PO ONE (20:39)
[2017-10-28] MEDS ORDERED: NORCO 5/325 MG ONE (20:44)
[2017-10-28 21:06] VITALS: BP 154/89; PULSE 93; O2SAT 98
--- NOTE | 2017-10-29 07:17 | XRAY ---
Indication: Pain following twisting injury. Comparison: None 3 views of the left knee demonstrates minimal medial joint space narrowing. No other bony, articular, or soft tissue abnormalities.
== END 2017-10-28 21:06 | disposition home or self-care (01) ==
LOC: ED 19:43
DX: S86.912A Strain of unspecified muscle(s) and tendon(s) at lower leg level, left leg, initial encounter (principal); M25.562 Pain in left knee; X50.0XXA Overexertion from strenuous movement or load, initial encounter
CPT/HCPCS: 73562; 99283; L1830; A9270-GY

== ENCOUNTER 2018-08-31 07:01 | Emergency (ER) | payer BC ==
[2018-08-31] MEDS ORDERED: Norflex 60 MG/2 ML IM ONE (07:35)
[2018-08-31] MEDS ORDERED: Norflex 60 MG/2 ML ONE (07:39)
--- NOTE | 2018-08-31 07:40 | ERPHSYRPT ---
- History of Present Illness Time Seen by Provider: 08/31/18 07:30 Source: patient Exam Limitations: no limitations Patient Subjective Stated Complaint: pt here for lower back pain after bending over yesterday, Triage Nursing Assessment: pt co pain to lower back pain no injury, pt walked in gaurding back, crying, resp easy, skin w/d/p Physician History: 33-year-old white female arrives with complaint of pain in her back midline low lumbar region symptoms since yesterday after bending over yesterday. Patient states the pain is in no low lumbar region radiates bilaterally to both sides of her back. Worse with movement. Past medical history includes anxiety, polycystic ovaries, Mireles's palsy, pseudostroke, right side. Past surgical history includes tubal ligation, , cyst removed from the urethra, tonsillectomy and adenoidectomy, uterine ablation Social history includes occasional alcohol . Timing/Duration: yesterday Severity: moderate Modifying Factors: Improves With: movement Associated Symptoms: other (back pain), No nausea, No vomiting, No abdominal pain, No shortness of breath, No heartburn, No diaphoresis, No cough, No chills , No chest pain, No fever, No headaches, No loss of appetite, No malaise, No rash, No syncope, No seizure, No weakness Allergies/Adverse Reactions: ketorolac tromethamine [From Toradol] Allergy (Intermediate, Verified 08/31/18 07:15) Hives/ aggressive Home Medications: ALPRAZolam [Xanax 0.25 mg] 0.25 mg PO BIDPRN PRN 02/11/16 [History] Levothyroxine Sodium 25 Mcg [Synthroid 25 Mcg] 25 mcg PO DAILY 02/11/16 [ History] Hx Tetanus, Diphtheria Vaccination/Date Given: No Hx Influenza Vaccination/Date Given: No Hx Pneumococcal Vaccination/Date Given: No Immunizations Up to Date: Yes - Review of Systems Constitutional: No Fever, No Chills Eyes: No Symptoms Ears, Nose, & Throat: No Symptoms Respiratory: No Symptoms Cardiac: No Chest Pain, No Edema, No Syncope Abdominal/Gastrointestinal: No Abdominal Pain, No Nausea, No Vomiting, No Diarrhea Genitourinary Symptoms: No Dysuria Musculoskeletal: Back Pain (Low lumbar back pain), No Arthralgias, No Neck Pain , No Deformity, No Fall, No Injury, No Joint Redness, No Joint Pain, No Joint Swelling, No Myalgias Skin: No Rash Neurological: No Dizziness, No Focal Weakness, No Sensory Changes Psychological: No Symptoms Endocrine: No Symptoms All Other Systems: Reviewed and Negative - Past Medical History Pertinent Past Medical History: Yes Neurological History: No Pertinent History ENT History: No Pertinent History Cardiac History: No Pertinent History Respiratory History: No Pertinent History Endocrine Medical History: Hypothyroidism Musculoskeletal History: No Pertinent History GI Medical History: No Pertinent History History: No Pertinent History Psycho-Social History: Depression Female Reproductive Disorders: Other Other Medical History: PCOS. bells palsy. sudo stroke in Aug related to stress rt side - Past Surgical History Past Surgical History: Yes Neuro Surgical History: No Pertinent History Cardiac: No Pertinent History Respiratory: No Pertinent History Gastrointestinal: No Pertinent History Genitourinary: No Pertinent History, Other Musculoskeletal: No Pertinent History Female Surgical History: Section Other Surgical History: cyst removed from urethra, T&A. uterine ablasion - Social History Smoking Status: Current some day smoker How long have you smoked: 13 YEARS Exposure to second hand smoke: Yes Drug Use: none Patient Lives Alone: No - Female History Hx Last Menstrual Period: 07/2018 Hx Now: No - Nursing Vital Signs Nursing Vital Signs: Initial Vital Signs Temperature 98.3 F 08/31/18 07:09 Pulse Rate 93 H 08/31/18 07:09 Respiratory Rate 18 08/31/18 07:09 Blood Pressure 137/99 08/31/18 07:09 O2 Sat by Pulse Oximetry 100 08/31/18 07:09 Pain Scale Pain Intensity 7 - Physical Exam General Appearance: mild distress Eye Exam: PERRL/EOMI, eyes nml inspection Ears, Nose, Throat Exam: normal ENT inspection, TMs normal, pharynx normal, moist mucous membranes Neck Exam: normal inspection, non-tender, supple, full range of motion Respiratory Exam: normal breath sounds, lungs clear, No respiratory distress Cardiovascular Exam: regular rate/rhythm, normal heart sounds, normal peripheral pulses, capillary refill <2 sec Gastrointestinal/Abdomen Exam: soft, normal bowel sounds, No tenderness, No mass Back Exam: other (back panel padder midline low lumbar region with movement and palpation) Extremity Exam: normal inspection, normal range of motion, pelvis stable Neurologic Exam: alert, oriented x 3, cooperative, ward maid II-XII nml as tested, normal mood/affect, nml cerebellar function, nml station & gait, sensation nml, No motor deficits Skin Exam: normal color, warm, dry, No rash SpO2 Interpretation: normal (100%) SpO2: 100 Ordered Tests: Active Orders 24 hr Category Date Time Status HCG QUALITATIVE,SERUM Stat Lab 08/31/18 07:45 Completed UA W/RFX UR CULTURE Stat Lab 08/31/18 07:58 Completed Medication Summary Discontinued Medications Generic Name Dose Route Start Last Admin Trade Name Haydee PRN Reason Stop Dose Admin Hydrocodone Bitart/Acetaminophen 1 tab 08/31/18 08:29 08/31/18 08:33 [place] 5/325 Mg PO 08/31/18 08:30 1 tab STAT ONE Administration Hydrocodone Bitart/Acetaminophen Confirm 08/31/18 08:32 [place] 5/325 Mg Administered 08/31/18 08:33 Dose 1 tab .ROUTE .STK-MED ONE Orphenadrine Citrate 60 mg 08/31/18 07:35 08/31/18 07:41 Norflex 60 Mg/2 Ml IM 08/31/18 07:36 60 mg STAT ONE Administration Orphenadrine Citrate Confirm 08/31/18 07:39 Norflex 60 Mg/2 Ml Administered 08/31/18 07:40 Dose 60 mg .ROUTE .STK-MED ONE Lab/Rad Data: Laboratory Results 08/31/18 08/31/18 Range/Units 07:58 07:45 Serum , Qual NEGATIVE (Negative) Urine Color YELLOW (YELLOW) Urine Appearance CLEAR (CLEAR) Urine pH 6.0 (5-6) Ur Specific [place] 1.008 (1.005-1.025) Urine Protein NEGATIVE (Negative) Urine Ketones NEGATIVE (NEGATIVE) Urine Blood NEGATIVE (0-5) Dhiraj/ul Urine Nitrite NEGATIVE (NEGATIVE) Urine Bilirubin NEGATIVE (NEGATIVE) Urine Urobilinogen NEGATIVE (0-1) mg/dL Ur Leukocyte Esterase NEGATIVE (NEGATIVE) Urine RBC (Auto) NONE (0-2) /HPF U Epithel Cells (Auto) NONE (FEW) /HPF Urine Bacteria (Auto) NONE (NEGATIVE) /HPF Urine Culture Reflexed NO (NO) Urine Glucose NEGATIVE (NEGATIVE) mg/dL - Progress Progress: improved Progress Note: 08/31/18 08:38 Patient improved but not pain-free after Norflex 60 mg IM patient given Bumpass one tablet Will write for a prescription for Bumpass and Flexeril for home. Will plan to discharge patient will give her a work slip for today and tomorrow. Patient to follow-up with family Dr. symptoms worse, no better in 48 hours, or persist longer than one week. Return for acute distress or for severe symptoms. - Departure Time of Disposition: 08:39 Departure Disposition: Home Clinical Impression: Back pain Qualifiers: Back pain location: low back pain Chronicity: acute Back pain laterality: midline Sciatica presence: without sciatica Qualified Code(s): M54.5 - Low back pain Lumbar strain Qualifiers: Encounter type: initial encounter Qualified Code(s): S39.012A - Strain of muscle, fascia and tendon of lower back, initial encounter Condition: Fair Critical Care Time: No Referrals: RAYSA GONZALEZ MD [Primary Care Provider] - Instructions: Low Back Pain (DC) Additional Instructions: Return home. Rest. Bumpass as prescribed. Flexeril as prescribed. Follow-up with your family doctor if symptoms are worse, no better in 48 hours, or persist longer than one week. Return for acute distress or for severe symptoms. Prescriptions: Hydrocodone/APAP 5-325 Tab^^^ [[place] 5-325 Tablet^^^] 1 tab PO Q4HPRN PRN #12 tablet MDD 6 PRN Reason: Pain Cyclobenzaprine HCl 10 mg [Cyclobenzaprine 10 MG] 10 mg PO TID #15 tablet
[2018-08-31] MEDS ORDERED: NORCO 5/325 MG PO ONE (08:29)
[2018-08-31 08:32] LABS: Appearance CLEAR (CLEAR); Bilirubin NEGATIVE (NEGATIVE); Blood NEGATIVE Ery/ul (0-5); Glucose NEGATIVE (NEGATIVE); Ketones NEGATIVE (NEGATIVE); Leukocyte Esterase NEGATIVE (NEGATIVE); Nitrite NEGATIVE (NEGATIVE); Protein,Urine Dip NEGATIVE (Negative); Specific Gravity 1.008 (1.005-1.025); Urobilinogen NEGATIVE mg/dL (0-1)
[2018-08-31] MEDS ORDERED: NORCO 5/325 MG ONE (08:32)
[2018-08-31 09:06] VITALS: BP 108/73; PULSE 83; O2SAT 97
== END 2018-08-31 09:17 | disposition home or self-care (01) ==
LOC: ED 07:01
DX: M54.5 Low back pain (principal); S39.012A Strain of muscle, fascia and tendon of lower back, initial encounter; E03.9 Hypothyroidism, unspecified; G51.0 Bell's palsy; F32.9 Major depressive disorder, single episode, unspecified; X50.9XXA Other and unspecified overexertion or strenuous movements or postures, initial encounter; E28.2 Polycystic ovarian syndrome
CPT/HCPCS: 36415; 81001; 81025; 96372; 99284; J2360; A9270-GY

== ENCOUNTER 2019-11-13 15:33 | Observation (INO) | payer BC ==
[2019-11-13 16:22] LABS: Appearance CLEAR (CLEAR); Bilirubin NEGATIVE (NEGATIVE); Blood NEGATIVE Ery/ul (0-5); Epithelial Cells RARE /HPF (FEW); Glucose NEGATIVE (NEGATIVE); Ketones NEGATIVE (NEGATIVE); Leukocyte Esterase NEGATIVE (NEGATIVE); Nitrite NEGATIVE (NEGATIVE); Protein,Urine Dip NEGATIVE (Negative); Specific Gravity 1.004 (1.005-1.025); Urobilinogen NEGATIVE mg/dL (0-1)
[2019-11-13 16:26] LABS: ALBUMIN 4.6 g/dL (3.5-5.0); ALKALINE PHOSPHATASE 64 U/L (38-126); ANION GAP 11.6 MEQ/L (5-15); BLOOD UREA NITROGEN 12 mg/dL (7-17); CHLORIDE 104 mmol/L (98-107); Calcium 9.5 mg/dL (8.4-10.2); Carbon Dioxide 29 mmol/L (22-30); Creatinine 1 0.66 mg/dL (0.52-1.04); Glucose 67 mg/dL (74-106); LIPASE 565 U/L (23-300); Potassium 3.8 mmol/L (3.5-5.1); SGOT/AST 20 U/L (14-36); SGPT/ALT 13 U/L (0-35); SODIUM 141 mmol/L (137-145); Total Protein 7.7 g/dL (6.3-8.2)
[2019-11-13] MEDS ORDERED: MORPHINE SULFATE 4 MG INJ ONE ×2 (16:39→17:49)
[2019-11-13] MEDS ORDERED: Zofran 4 MG/2 ML VIAL ONE (16:39)
[2019-11-13 16:43] LABS: Absolute Neutrophil Ct (ANC) 5.69 (1.4-6.9); BASOPHIL % 0.3 % (0.0-0.4); Basophil (Absolute #) 0.03 (0-0.4); Eosinophil % 1.1 % (0.00-5.0); Eosinophil (Absolute #) 0.12 (0-0.5); Hemoglobin 15.1 gm/dl (12.0-16.0); Lymphocyte (Absolute #) 3.85 (1.0-4.6); Lymphocytes % 35.9 % (24.0-44.0); Mean Cell Volume 87.6 fl (78-100); Mean Corpuscular Hemoglobin 30.8 pg (26-32); Mean Corpuscular Hgb Concent. 35.1 g/dl (32-36); Mean Platelet Volume 8.6 fl (7.5-11.0); Monocyte (Absolute #) 1.02 (0.0-1.3); Monocytes % 9.5 % (0.0-12.0); Neutrophil % 53.2 % (36.0-66.0); Platelet Count 317 K/mm3 (150-450); Red Blood Count 4.91 M/mm3 (4.1-5.4); White Blood Count 10.7 K/mm3 (4.0-10.5)
--- NOTE | 2019-11-13 16:43 | XRAY ---
Indication: Abdomen pain. Two-dimensional gallbladder sonogram performed. Comparison: None Pancreas not well-seen due to overlying bowel gas. Gallbladder contracted without large gallstones or pericholecystic fluid. Common bile duct measures 3.7 mm. No intrahepatic biliary distention. Remaining visualized portions of the liver and right kidney appear sonographically normal. Right kidney measures 11 cm in length. No ascites. Impression: 1. Contracted gallbladder. Media Sales Consultant notes patient not NPO for exam. 2. Nonvisualization pancreas. 3. Remaining right upper quadrant sonogram negative.
[2019-11-13] MEDS ORDERED: MORPHINE SULFATE 4 MG INJ IV ONE ×2 (16:46→17:44)
[2019-11-13] MEDS ORDERED: Zofran 4 MG/2 ML VIAL IV ONE (16:47)
--- NOTE | 2019-11-13 16:57 | ERPHSYRPT ---
- History of Present Illness Time Seen by Provider: 11/13/19 15:50 Historian: patient Exam Limitations: no limitations Patient Subjective Stated Complaint: pt to ER with complaints of RUQ pain since last night. pt states pain has moved and is now down to her hip. pt states it feels like a pulled muscle. Triage Nursing Assessment: pt A&Ox4. pt ambulatory. pt skin pwd. pupils perrl. Physician History: Patient is a 34-year-old female who presents to our ED with complaints of epigastric and right upper quadrant pain. Symptoms started last night and have been constant. Pain described as an ache that tends to radiate down to her right hip. Patient states it feels like she pulled a muscle. However she denies injury. No trauma. No fever. No nausea or vomiting. No diarrhea. No rash. 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 Patient states he is otherwise healthy. She voices no other complaints at this time. Timing/Duration: yesterday Activities at Onset: none Quality: aching Abdominal Pain Onset Location: RUQ, epigastric Pain Radiation: other (radiates to right hip) Severity of Pain-Max: moderate Severity of Pain-Current: mild Modifying Factors: Improves With: nothing Associated Symptoms: denies symptoms, No chest pain, No diaphoresis, No diarrhea , No fever/chills, No headache, No shortness of breath, No vomiting Previous symptoms: no prior history Allergies/Adverse Reactions: ketorolac tromethamine [From Toradol] Allergy (Intermediate, Verified 11/13/19 15:50) Hives/ aggressive Home Medications: ALPRAZolam [Xanax 0.25 mg] 0.25 mg PO BIDPRN PRN 02/11/16 [History] Levothyroxine Sodium 25 Mcg [Synthroid 25 Mcg] 25 mcg PO DAILY 02/11/16 [ History] Hx Tetanus, Diphtheria Vaccination/Date Given: Yes Hx Influenza Vaccination/Date Given: Yes Hx Pneumococcal Vaccination/Date Given: No Immunizations Up to Date: Yes Travel Risk - International Travel Have you traveled outside of the country in past 3 weeks: No Have you or anyone close to you been diagnosed with or: No Do your reside in a community with a known COVID-19 case?: Yes If Yes where:: [place] - Coronavirus Screening Has patient experienced Coronavirus symptoms: No - Review of Systems Constitutional: No Symptoms, No Fever, No Chills Eyes: No Symptoms Ears, Nose, & Throat: No Symptoms Respiratory: No Symptoms, No Cough, No Dyspnea Cardiac: No Symptoms, No Chest Pain, No Edema, No Syncope Abdominal/Gastrointestinal: Abdominal Pain, No Nausea, No Vomiting, No Diarrhea Genitourinary Symptoms: No Symptoms, No Dysuria Musculoskeletal: No Symptoms, No Back Pain, No Neck Pain Skin: No Symptoms, No Rash Neurological: No Symptoms, No Dizziness, No Focal Weakness, No Sensory Changes Psychological: No Symptoms Endocrine: No Symptoms Hematologic/Lymphatic: No Symptoms Immunological/Allergic: No Symptoms All Other Systems: Reviewed and Negative - Past Medical History Pertinent Past Medical History: Yes Neurological History: No Pertinent History ENT History: No Pertinent History Cardiac History: No Pertinent History Respiratory History: No Pertinent History Endocrine Medical History: Hypothyroidism Musculoskeletal History: No Pertinent History GI Medical History: No Pertinent History History: No Pertinent History Psycho-Social History: Depression Female Reproductive Disorders: Other Other Medical History: ovarian cysts - Past Surgical History Past Surgical History: Yes Neuro Surgical History: No Pertinent History Cardiac: No Pertinent History Respiratory: No Pertinent History Gastrointestinal: No Pertinent History Genitourinary: Other Musculoskeletal: No Pertinent History Female Surgical History: Section Other Surgical History: cyst removed from urethra, T&A. uterine ablasion - Social History Smoking Status: Current every day smoker How long have you smoked: 13 YEARS Exposure to second hand smoke: Yes Drug Use: none Patient Lives Alone: No - Female History Hx Last Menstrual Period: 11/02/2019 Hx Now: No - Nursing Vital Signs Nursing Vital Signs: Initial Vital Signs Temperature 97.7 F 11/13/19 15:41 Pulse Rate 96 H 11/13/19 15:41 Respiratory Rate 18 11/13/19 15:41 Blood Pressure 140/75 11/13/19 15:41 O2 Sat by Pulse Oximetry 100 11/13/19 15:41 Pain Scale Pain Intensity 7 - Physical Exam General Appearance: no apparent distress, alert Eye Exam: PERRL/EOMI, eyes nml inspection Ears, Nose, Throat Exam: normal ENT inspection, pharynx normal, moist mucous membranes Neck Exam: normal inspection, non-tender, supple, full range of motion Respiratory Exam: normal breath sounds, lungs clear, No respiratory distress Cardiovascular Exam: regular rate/rhythm, normal heart sounds Gastrointestinal/Abdomen Exam: soft, tenderness, other (Tenderness to palpation primarily at the epigastrium and right upper quadrant. Overlying soft tissue intact. No signs of trauma.), No distention, No mass, No guarding, No pulsatile mass, No rebound Pelvic Exam: not done Rectal Exam: deferred Back Exam: normal inspection, normal range of motion, No CVA tenderness, No vertebral tenderness Extremity Exam: normal inspection, normal range of motion, pelvis stable Neurologic Exam: alert, oriented x 3, cooperative, normal mood/affect, nml cerebellar function, sensation nml, No motor deficits Skin Exam: normal color, warm, dry SpO2 Interpretation: normal SpO2: 99 O2 Delivery: Room Air - Course Nursing assessment & vital signs reviewed: Yes - CT Exams Abdomen/Pelvis CT Interpretation: Tele-radiologist Report (Right-sided hydronephrosis, fecal stasis, renal cyst, hepatosplenomegaly.) - Radiology Ultrasound Exam Gallbladder Ultrasound: tele radiology report (Contracted gallbladder, no gallstones observed. No evidence of cholecystitis.) Ordered Tests: Active Orders 24 hr Category Date Time Status ACCUCHECK [Accucheck] STAT Care 11/13/19 18:01 Active IV Insertion STAT Care 11/13/19 15:55 Active ABDOMEN AND PELVIS W CONTRAST [CT] Stat Exams 11/13/19 15:59 Completed GALLBLADDER [US] Stat Exams 11/13/19 15:59 Completed AMYLASE Stat Lab 11/13/19 17:58 Ordered CBC W DIFF Stat Lab 11/13/19 16:00 Completed CMP Stat Lab 11/13/19 16:00 Completed LIPASE Stat Lab 11/13/19 16:00 Completed TROPONIN Q3H Lab 11/13/19 16:00 Completed TROPONIN Q3H Lab 11/13/19 19:00 Ordered TROPONIN Q3H Lab 11/13/19 22:00 Ordered TROPONIN Q3H Lab 11/14/19 01:00 Ordered TROPONIN Q3H Lab 11/14/19 04:00 Ordered UA W/RFX UR CULTURE Stat Lab 11/13/19 Completed Transfer Order Routine Transfer 11/13/19 Ordered Medication Summary Discontinued Medications Generic Name Dose Route Start Last Admin Trade Name Freq PRN Reason Stop Dose Admin Morphine Sulfate Confirm 11/13/19 16:39 Morphine Sulfate 4 Mg Inj Administered 11/13/19 16:40 Dose 4 mg .ROUTE .STK-MED ONE Morphine Sulfate 4 mg 11/13/19 16:46 11/13/19 16:49 Morphine Sulfate 4 Mg Inj IV 11/13/19 16:47 4 mg STAT ONE Administration Morphine Sulfate 4 mg 11/13/19 17:44 11/13/19 17:54 Morphine Sulfate 4 Mg Inj IV 11/13/19 17:45 4 mg STAT ONE Administration Morphine Sulfate Confirm 11/13/19 17:49 Morphine Sulfate 4 Mg Inj Administered 11/13/19 17:50 Dose 4 mg .ROUTE .STK-MED ONE Ondansetron HCl Confirm 11/13/19 16:39 Zofran 4 Mg/2 Ml Vial Administered 11/13/19 16:40 Dose 4 mg .ROUTE .STK-MED ONE Ondansetron HCl 4 mg 11/13/19 16:47 11/13/19 16:49 Zofran 4 Mg/2 Ml Vial IV 11/13/19 16:48 4 mg STAT ONE Administration Lab/Rad Data: Laboratory Result Diagrams 11/13/19 16:00 11/13/19 16:00 Laboratory Results 11/13/19 11/13/19 11/13/19 Range/Units Unknown 16:00 16:00 WBC (4.0-10.5) K/mm3 RBC (4.1-5.4) M/mm3 Hgb (12.0-16.0) gm/dl Hct (35-47) % MCV (78-100) fl MCH (26-32) pg MCHC (32-36) g/dl RDW (11.5-14.0) % Plt Count (150-450) K/mm3 MPV (7.5-11.0) fl Gran % (36.0-66.0) % Eos # (Auto) (0-0.5) Absolute Lymphs (auto) (1.0-4.6) Absolute Monos (auto) (0.0-1.3) Lymphocytes % (24.0-44.0) % Monocytes % (0.0-12.0) % Eosinophils % (0.00-5.0) % Basophils % (0.0-0.4) % Absolute Granulocytes (1.4-6.9) Basophils # (0-0.4) Sodium 141 (137-145) mmol/L Potassium 3.8 (3.5-5.1) mmol/L Chloride 104 (98-107) mmol/L Carbon Dioxide 29 (22-30) mmol/L Anion Gap 11.6 (5-15) MEQ/L BUN 12 (7-17) mg/dL Creatinine 0.66 (0.52-1.04) mg/dL Estimated GFR > 60.0 ML/MIN Glucose 67 L (74-106) mg/dL Calcium 9.5 (8.4-10.2) mg/dL Total Bilirubin 0.50 (0.2-1.3) mg/dL AST 20 (14-36) U/L ALT 13 (0-35) U/L Alkaline Phosphatase 64 (38-126) U/L Troponin I < 0.012 (0.000-0.034) ng/mL Serum Total Protein 7.7 (6.3-8.2) g/dL Albumin 4.6 (3.5-5.0) g/dL Lipase 565 H (23-300) U/L Urine Color STRAW (YELLOW) Urine Appearance CLEAR (CLEAR) Urine pH 8.0 (5-6) Ur Specific [place] 1.004 (1.005-1.025) Urine Protein NEGATIVE (Negative) Urine Ketones NEGATIVE (NEGATIVE) Urine Blood NEGATIVE (0-5) Dhiraj/ul Urine Nitrite NEGATIVE (NEGATIVE) Urine Bilirubin NEGATIVE (NEGATIVE) Urine Urobilinogen NEGATIVE (0-1) mg/dL Ur Leukocyte Esterase NEGATIVE (NEGATIVE) Urine WBC (Auto) NONE (0-5) /HPF Urine RBC (Auto) NONE (0-2) /HPF U Epithel Cells (Auto) RARE (FEW) /HPF Urine Bacteria (Auto) NONE (NEGATIVE) /HPF Urine Culture Reflexed NO (NO) Urine Glucose NEGATIVE (NEGATIVE) mg/dL 11/13/19 Range/Units 16:00 WBC 10.7 H (4.0-10.5) K/mm3 RBC 4.91 (4.1-5.4) M/mm3 Hgb 15.1 (12.0-16.0) gm/dl Hct 43.0 (35-47) % MCV 87.6 (78-100) fl MCH 30.8 (26-32) pg MCHC 35.1 (32-36) g/dl RDW 13.0 (11.5-14.0) % Plt Count 317 (150-450) K/mm3 MPV 8.6 (7.5-11.0) fl Gran % 53.2 (36.0-66.0) % Eos # (Auto) 0.12 (0-0.5) Absolute Lymphs (auto) 3.85 (1.0-4.6) Absolute Monos (auto) 1.02 (0.0-1.3) Lymphocytes % 35.9 (24.0-44.0) % Monocytes % 9.5 (0.0-12.0) % Eosinophils % 1.1 (0.00-5.0) % Basophils % 0.3 (0.0-0.4) % Absolute Granulocytes 5.69 (1.4-6.9) Basophils # 0.03 (0-0.4) Sodium (137-145) mmol/L Potassium (3.5-5.1) mmol/L Chloride (98-107) mmol/L Carbon Dioxide (22-30) mmol/L Anion Gap (5-15) MEQ/L BUN (7-17) mg/dL Creatinine (0.52-1.04) mg/dL Estimated GFR ML/MIN Glucose (74-106) mg/dL Calcium (8.4-10.2) mg/dL Total Bilirubin (0.2-1.3) mg/dL AST (14-36) U/L ALT (0-35) U/L Alkaline Phosphatase (38-126) U/L Troponin I (0.000-0.034) ng/mL Serum Total Protein (6.3-8.2) g/dL Albumin (3.5-5.0) g/dL Lipase (23-300) U/L Urine Color (YELLOW) Urine Appearance (CLEAR) Urine pH (5-6) Ur Specific [place] (1.005-1.025) Urine Protein (Negative) Urine Ketones (NEGATIVE) Urine Blood (0-5) Dhiraj/ul Urine Nitrite (NEGATIVE) Urine Bilirubin (NEGATIVE) Urine Urobilinogen (0-1) mg/dL Ur Leukocyte Esterase (NEGATIVE) Urine WBC (Auto) (0-5) /HPF Urine RBC (Auto) (0-2) /HPF U Epithel Cells (Auto) (FEW) /HPF Urine Bacteria (Auto) (NEGATIVE) /HPF Urine Culture Reflexed (NO) Urine Glucose (NEGATIVE) mg/dL - Progress Progress: improved Progress Note: 11/13/19 18:09 Patient reassessed. Pain improved. Case discussed Dr. Saba who accepts admission to observation. Plan of care discussed with patient. She agrees admission to [facility] for further evaluation and treatment of her elevated pancreatic enzyme/pancreatitis. Discussed with Dr.: Shasha Counseled pt/family regarding: lab results, diagnosis, rad results - Departure Departure Disposition: Observation Clinical Impression: Pancreatitis, Leukocytosis, Elevated lipase, Constipation, Hydronephrosis, Renal cyst, Splenomegaly, Hepatomegaly Condition: Stable Critical Care Time: No Referrals: RAYSA GONZALEZ MD [Primary Care Provider] -
--- NOTE | 2019-11-13 17:26 | XRAY ---
Indication: Right upper quadrant pain Multiple contiguous axial images obtained through the abdomen and pelvis using 80 cc Isovue-370 contrast only as ordered. Comparison: July 16, 2009 Lung bases remain clear. Heart is not enlarged. Stomach is distended with food. Noncontrasted stomach and bowel loops appear nonobstructed. Normal appendix. There is again mild diffuse Colonic fecal debris predominantly in the ascending and transverse colon. No free fluid/air. Right kidney demonstrates new mild hydronephrosis without hydroureter or distal calculus. Query recent passage of calculus. Again incidental 6 mm right mid renal cyst, 12.8 cm splenomegaly, and 20 cm hepatomegaly. Gallbladder partially contracted without gallstones or biliary distention. Remaining liver, gallbladder, pancreas, spleen, adrenal glands, kidneys, ureters, bladder, uterus, and aorta appear unremarkable. No pathologic retroperitoneal lymphadenopathy. Osseous structures intact. No ventral or inguinal hernias. Impression: 1. New hydronephrotic right kidney without distal calculus. Query recent passage of calculus. 2. Again incidental fecal stasis without obstruction, tiny right renal cyst, and hepatosplenomegaly.
[2019-11-13] MEDS ORDERED: MORPHINE SULFATE 4 MG INJ IV PRN (18:36)
[2019-11-13 19:23] LABS: Amphetamine,Urine NEGATIVE (NEGATIVE); Barbiturate,Urine NEGATIVE (NEGATIVE); Benzodiazepine,Urine NEGATIVE (NEGATIVE); Cocaine,Urine NEGATIVE (NEGATIVE); Methadone,Urine NEGATIVE (NEGATIVE); Opiate,Urine NEGATIVE (NEGATIVE); PCP,Urine NEGATIVE (NEGATIVE); THC,Urine POSITIVE (NEGATIVE)
[2019-11-13] MEDS: DILAUDID 2 MG INJECTION IV PRN (20:55)
[2019-11-13] MEDS: Sodium Chloride 0.9% 1000 ML 1,000 ML IV SCH (20:55)
[2019-11-13] MEDS: Zofran 4 MG/2 ML VIAL IV PRN (21:46)
[2019-11-14] MEDS: DILAUDID 2 MG INJECTION IV PRN ×6 (00:19→23:24)
[2019-11-14] MEDS: Zofran 4 MG/2 ML VIAL IV PRN ×5 (03:47→22:51)
[2019-11-14 05:23] LABS: Absolute Neutrophil Ct (ANC) 5.53 (1.4-6.9); BASOPHIL % 0.2 % (0.0-0.4); Basophil (Absolute #) 0.02 (0-0.4); Eosinophil % 1.6 % (0.00-5.0); Eosinophil (Absolute #) 0.15 (0-0.5); Hematocrit 41.5 % (35-47); Hemoglobin 14.4 gm/dl (12.0-16.0); Lymphocyte (Absolute #) 3.22 (1.0-4.6); Lymphocytes % 33.7 % (24.0-44.0); Mean Cell Volume 88.1 fl (78-100); Mean Corpuscular Hemoglobin 30.6 pg (26-32); Mean Corpuscular Hgb Concent. 34.7 g/dl (32-36); Mean Platelet Volume 8.6 fl (7.5-11.0); Monocyte (Absolute #) 0.63 (0.0-1.3); Monocytes % 6.6 % (0.0-12.0); Neutrophil % 57.9 % (36.0-66.0); Platelet Count 279 K/mm3 (150-450); Red Blood Count 4.71 M/mm3 (4.1-5.4); White Blood Count 9.6 K/mm3 (4.0-10.5)
[2019-11-14 05:41] LABS: ALBUMIN 3.9 g/dL (3.5-5.0); ALKALINE PHOSPHATASE 51 U/L (38-126); ANION GAP 10.5 MEQ/L (5-15); BLOOD UREA NITROGEN 11 mg/dL (7-17); CHLORIDE 107 mmol/L (98-107); Calcium 8.6 mg/dL (8.4-10.2); Carbon Dioxide 24 mmol/L (22-30); Creatinine 1 0.52 mg/dL (0.52-1.04); Glucose 114 mg/dL (74-106); LIPASE 174 U/L (23-300); Potassium 3.8 mmol/L (3.5-5.1); SGOT/AST 19 U/L (14-36); SGPT/ALT 12 U/L (0-35); SODIUM 138 mmol/L (137-145); Total Protein 6.9 g/dL (6.3-8.2)
[2019-11-14] MEDS: Sodium Chloride 0.9% 1000 ML 1,000 ML IV SCH ×2 (07:06→16:10)
--- NOTE | 2019-11-14 11:35 | HP ---
CHIEF COMPLAINT: Right upper quadrant abdominal pain. HISTORY OF PRESENT ILLNESS: The patient is a 34 year-old white female who reports she has been having problems with pain over the past week. She reports when she went to work she was sweating bullets and having to wear a girdle around her abdomen with a heating pad in order to control the pain. She reports she does have a history of ovarian cysts and she felt like this was recurrence of an ovarian cyst problem at first but the problems persisted to get worse so she presented to the emergency room for evaluation and management. PAST MEDICAL/SURGICAL HISTORY: Otherwise is significant for anxiety and allergic rhinitis and hypothyroidism. She had previous section. A cyst removed from the urethral lacunae and uterine ablation. HOME MEDICATIONS: Alprazolam 25 mg b.i.d. PRN anxiety, Flonase, Xyzal, Synthroid 25 mcg daily. ALLERGIES: TORADOL. PHYSICAL EXAMINATION: VITAL SIGNS: The patient's vital signs on admission showed temperature 97.7F, pulse 96, respiratory rate 18 and blood pressure 140/75. O2 saturation 100%. HEENT: Normocephalic, atraumatic. Pupils equal round reactive to light. Extraocular movements intact. Oropharynx is pink and moist. NECK: Supple without lymphadenopathy, thyromegaly or JVD. CHEST: Clear to auscultation. HEART: Regular rate and rhythm without murmurs, rubs or gallops. ABDOMEN: Soft, somewhat tender in the right upper quadrant but otherwise no guarding, no rebound and no palpable masses. EXTREMITIES: Without cyanosis, clubbing or edema. NEUROLOGIC: The patient is alert and oriented x3. No focal deficits noted. LAB DATA AND TESTS: The patient's metabolic panel showed the glucose 67. The comprehensive metabolic panel was essentially normal other than lipase was noted to be 565, amylase 199. Her white count was 10,700. CBC was otherwise totally normal. Troponin was less than 0.012. UA was normal. Urine drug screen was positive for THC but otherwise negative. The patient did have CT scan revealing new hydronephrotic right kidney without distal calculus concerning for possible recent passage of calculus. The gallbladder was partially contracted without evidence of stones or biliary distention. She also had gallbladder ultrasound which also showed gallbladder contraction but she was nonfasting. There was nonvisualization of the pancreas. Remaining right upper quadrant sonogram was negative. ASSESSMENT: A patient with right upper quadrant abdominal pain concerning for possible cholecystitis with contracted gallbladder. We will try to get a HIDA scan performed and surgical consultation. The patient will be receiving IV fluids and IV Dilaudid for pain control which she has been using quite regularly. She will continue to be NPO at the present time while pending her surgical consultation and HIDA scan.
--- NOTE | 2019-11-14 13:36 | PCM.CONS ---
History of Present Illness - Reason for Consult Chief Complaint: pancreatitis, hydronephrosis, abdominal pain Reason for Consult: abd pain Requesting Provider: PATRICIA HUBER Consulting Provider: PATRICK BAILEY MD History of Present Illness: is a 34 year old female. 34yo female 5 pm ruq abd pain. bothersome but tolerable. 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 Laid down for a few hours with no improvement. Constant pain that is dull but sometimes sharp and more severe. improves with holding pressure. improved with dilaudid. + nausea and NBNB emesis only after dilaudid. last Bm yesterday. ROS negative otherwise. "Patient is a 34-year-old female who presents to our ED with complaints of epigastric and right upper quadrant pain. Symptoms started last night and have been constant. Pain described as an ache that tends to radiate down to her right hip. Patient states it feels like she pulled a muscle. However she denies injury. No trauma. No fever. No nausea or vomiting. No diarrhea. No rash. 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 Patient states he is otherwise healthy. She voices no other complaints at this time. Timing/Duration: yesterday Activities at Onset: none Quality: aching Abdominal Pain Onset Location: RUQ, epigastric Pain Radiation: other (radiates to right hip) Severity of Pain-Max: moderate Severity of Pain-Current: mild Modifying Factors: Improves With: nothing Associated Symptoms: denies symptoms, No chest pain, No diarrhea, No fever/ chills, No headache, No shortness of breath, No vomiting Previous symptoms: no prior history Allergies/Adverse Reactions: " - Review of Systems Constitutional: No Fever, No Chills Respiratory: No Symptoms, No Cough, No Short Of Breath Cardiac: No No Symptoms, No Chest Pain Abdominal/Gastrointestinal: Abdominal Pain, Nausea, Vomiting, No Diarrhea, No Constipation, No Hematemesis, No Hematochezia, No Melena, No Dysphagia Genitourinary Symptoms: No No Symptoms, No Dysuria, No Frequency, No Hematuria Musculoskeletal: No Symptoms Neurological: No No Symptoms Psychological: Anxiety Hematologic/Lymphatic: No Blood Clots, No Easy Bleeding Medications & Allergies Home Medications: Home Medication List ALPRAZolam [Xanax 0.25 mg] 0.25 mg PO BIDPRN PRN 02/11/16 [History Confirmed 06/22] Levothyroxine Sodium 25 Mcg [Synthroid 25 Mcg] 25 mcg PO DAILY 02/11/16 [ History Confirmed 11/13/19] Fluticasone Propionate [Flonase NASAL] 2 puff NS QAM 11/13/19 [History Confirmed 11/13/19] Levocetirizine Dihydrochloride [Xyzal] 5 mg PO QAM 11/13/19 [History Confirmed 11/13/19] Allergies/Adverse Reactions: Allergies Allergy/AdvReac Type Severity Reaction Status Date / Time ketorolac tromethamine AdvReac Intermediate Hives/ Verified 11/13/19 18:41 [From Toradol] aggressive - Past Medical History Past Medical History: Yes Neurological History: No Pertinent History ENT History: No Pertinent History Cardiac History: No Pertinent History Respiratory History: No Pertinent History Endocrine Medical History: Hypothyroidism Musculoskelatal History: No Pertinent History GI Medical History: No Pertinent History History: No Pertinent History Pyscho-Social History: Depression Reproductive Disorders: Other Comment: ovarian cysts - Female History Hx Last Menstrual Period: 11/02/2019 Are you now?: No - Past Surgical History Past Surgical History: Yes Neuro Surgical History: No Pertinent History Cardiac History: No Pertinent History Respiratory Surgery: No Pertinent History GI Surgical History: No Pertinent History Genitourinary Surgical Hx: Other Musculskeletal Surgical Hx: No Pertinent History Female Surgical History: Section Other Surgical History: cyst removed from urethra, T&A. uterine ablasion - Social History Smoking Status: Current every day smoker How long have you smoked: 20 years Exposure to second hand smoke: Yes Alcohol: Occasionally Drug Use: none - Physical Exam Vital Signs: Vital Signs - 24 hr Temp Pulse Resp BP Pulse Ox 11/14/19 12:00 99.0 F 61 16 129/70 99 11/14/19 07:44 99 11/14/19 07:25 97.8 F 72 17 119/72 99 11/14/19 04:00 98.4 F 85 18 115/60 94 L 11/14/19 00:00 97.7 F 65 16 119/60 94 L 11/13/19 20:04 97.7 F 81 16 129/75 97 11/13/19 20:00 98.7 F 78 18 110/59 95 11/13/19 18:10 99 11/13/19 18:00 78 16 125/69 98 11/13/19 16:36 80 20 123/70 99 11/13/19 15:41 97.7 F 96 H 18 140/75 100 General Appearance: no apparent distress Neurologic Exam: alert, oriented x 3, normal mood/affect Eye Exam: eyes nml inspection, No scleral icterus Neck Exam: normal inspection Respiratory Exam: other (nonlabored) Cardiovascular Exam: regular rate/rhythm Gastrointestinal/Abdomen Exam: soft, tenderness (nd, soft, minimally ttp ruq/ epigastrium.) Pelvic Exam: not done Rectal Exam: deferred, not done Extremity Exam: normal inspection Skin Exam: normal color, warm, dry Results - Labs Lab/Micro Results: Accuchecks Accucheck Value: 98 Lab Results-Last 24 Hours 11/13/19 11/13/19 11/13/19 Range/Units 16:00 16:00 16:00 WBC 10.7 H (4.0-10.5) K/mm3 RBC 4.91 (4.1-5.4) M/mm3 Hgb 15.1 (12.0-16.0) gm/dl Hct 43.0 (35-47) % MCV 87.6 (78-100) fl MCH 30.8 (26-32) pg MCHC 35.1 (32-36) g/dl RDW 13.0 (11.5-14.0) % Plt Count 317 (150-450) K/mm3 MPV 8.6 (7.5-11.0) fl Gran % 53.2 (36.0-66.0) % Eos # (Auto) 0.12 (0-0.5) Absolute Lymphs (auto) 3.85 (1.0-4.6) Absolute Monos (auto) 1.02 (0.0-1.3) Lymphocytes % 35.9 (24.0-44.0) % Monocytes % 9.5 (0.0-12.0) % Eosinophils % 1.1 (0.00-5.0) % Basophils % 0.3 (0.0-0.4) % Absolute Granulocytes 5.69 (1.4-6.9) Basophils # 0.03 (0-0.4) Sodium 141 (137-145) mmol/L Potassium 3.8 (3.5-5.1) mmol/L Chloride 104 (98-107) mmol/L Carbon Dioxide 29 (22-30) mmol/L Anion Gap 11.6 (5-15) MEQ/L BUN 12 (7-17) mg/dL Creatinine 0.66 (0.52-1.04) mg/dL Estimated GFR > 60.0 ML/MIN Glucose 67 L (74-106) mg/dL Calcium 9.5 (8.4-10.2) mg/dL Total Bilirubin 0.50 (0.2-1.3) mg/dL AST 20 (14-36) U/L ALT 13 (0-35) U/L Alkaline Phosphatase 64 (38-126) U/L Troponin I < 0.012 (0.000-0.034) ng/mL Serum Total Protein 7.7 (6.3-8.2) g/dL Albumin 4.6 (3.5-5.0) g/dL Amylase (30-110) U/L Lipase 565 H (23-300) U/L Urine Color (YELLOW) Urine Appearance (CLEAR) Urine pH (5-6) Ur Specific [place] (1.005-1.025) Urine Protein (Negative) Urine Ketones (NEGATIVE) Urine Blood (0-5) Dhiraj/ul Urine Nitrite (NEGATIVE) Urine Bilirubin (NEGATIVE) Urine Urobilinogen (0-1) mg/dL Ur Leukocyte Esterase (NEGATIVE) Urine WBC (Auto) (0-5) /HPF Urine RBC (Auto) (0-2) /HPF U Epithel Cells (Auto) (FEW) /HPF Urine Bacteria (Auto) (NEGATIVE) /HPF Urine Culture Reflexed (NO) Urine Glucose (NEGATIVE) mg/dL Urine Opiates Level (NEGATIVE) Ur Methadone (NEGATIVE) Urine Barbiturates (NEGATIVE) Ur Phencyclidine (PCP) (NEGATIVE) Urine Amphetamine (NEGATIVE) U Benzodiazepine Level (NEGATIVE) Urine Cocaine (NEGATIVE) Urine Marijuana (THC) (NEGATIVE) 11/13/19 11/13/19 11/13/19 Range/Units 18:57 19:15 22:20 WBC (4.0-10.5) K/mm3 RBC (4.1-5.4) M/mm3 Hgb (12.0-16.0) gm/dl Hct (35-47) % MCV (78-100) fl MCH (26-32) pg MCHC (32-36) g/dl RDW (11.5-14.0) % Plt Count (150-450) K/mm3 MPV (7.5-11.0) fl Gran % (36.0-66.0) % Eos # (Auto) (0-0.5) Absolute Lymphs (auto) (1.0-4.6) Absolute Monos (auto) (0.0-1.3) Lymphocytes % (24.0-44.0) % Monocytes % (0.0-12.0) % Eosinophils % (0.00-5.0) % Basophils % (0.0-0.4) % Absolute Granulocytes (1.4-6.9) Basophils # (0-0.4) Sodium (137-145) mmol/L Potassium (3.5-5.1) mmol/L Chloride (98-107) mmol/L Carbon Dioxide (22-30) mmol/L Anion Gap (5-15) MEQ/L BUN (7-17) mg/dL Creatinine (0.52-1.04) mg/dL Estimated GFR ML/MIN Glucose (74-106) mg/dL Calcium (8.4-10.2) mg/dL Total Bilirubin (0.2-1.3) mg/dL AST (14-36) U/L ALT (0-35) U/L Alkaline Phosphatase (38-126) U/L Troponin I < 0.012 < 0.012 (0.000-0.034) ng/mL Serum Total Protein (6.3-8.2) g/dL Albumin (3.5-5.0) g/dL Amylase (30-110) U/L Lipase (23-300) U/L Urine Color (YELLOW) Urine Appearance (CLEAR) Urine pH (5-6) Ur Specific [place] (1.005-1.025) Urine Protein (Negative) Urine Ketones (NEGATIVE) Urine Blood (0-5) Dhiraj/ul Urine Nitrite (NEGATIVE) Urine Bilirubin (NEGATIVE) Urine Urobilinogen (0-1) mg/dL Ur Leukocyte Esterase (NEGATIVE) Urine WBC (Auto) (0-5) /HPF Urine RBC (Auto) (0-2) /HPF U Epithel Cells (Auto) (FEW) /HPF Urine Bacteria (Auto) (NEGATIVE) /HPF Urine Culture Reflexed (NO) Urine Glucose (NEGATIVE) mg/dL Urine Opiates Level NEGATIVE (NEGATIVE) Ur Methadone NEGATIVE (NEGATIVE) Urine Barbiturates NEGATIVE (NEGATIVE) Ur Phencyclidine (PCP) NEGATIVE (NEGATIVE) Urine Amphetamine NEGATIVE (NEGATIVE) U Benzodiazepine Level NEGATIVE (NEGATIVE) Urine Cocaine NEGATIVE (NEGATIVE) Urine Marijuana (THC) POSITIVE (NEGATIVE) 11/13/19 11/13/19 11/14/19 Range/Units Unknown Unknown 01:00 WBC (4.0-10.5) K/mm3 RBC (4.1-5.4) M/mm3 Hgb (12.0-16.0) gm/dl Hct (35-47) % MCV (78-100) fl MCH (26-32) pg MCHC (32-36) g/dl RDW (11.5-14.0) % Plt Count (150-450) K/mm3 MPV (7.5-11.0) fl Gran % (36.0-66.0) % Eos # (Auto) (0-0.5) Absolute Lymphs (auto) (1.0-4.6) Absolute Monos (auto) (0.0-1.3) Lymphocytes % (24.0-44.0) % Monocytes % (0.0-12.0) % Eosinophils % (0.00-5.0) % Basophils % (0.0-0.4) % Absolute Granulocytes (1.4-6.9) Basophils # (0-0.4) Sodium (137-145) mmol/L Potassium (3.5-5.1) mmol/L Chloride (98-107) mmol/L Carbon Dioxide (22-30) mmol/L Anion Gap (5-15) MEQ/L BUN (7-17) mg/dL Creatinine (0.52-1.04) mg/dL Estimated GFR ML/MIN Glucose (74-106) mg/dL Calcium (8.4-10.2) mg/dL Total Bilirubin (0.2-1.3) mg/dL AST (14-36) U/L ALT (0-35) U/L Alkaline Phosphatase (38-126) U/L Troponin I < 0.012 (0.000-0.034) ng/mL Serum Total Protein (6.3-8.2) g/dL Albumin (3.5-5.0) g/dL Amylase 199 H (30-110) U/L Lipase (23-300) U/L Urine Color STRAW (YELLOW) Urine Appearance CLEAR (CLEAR) Urine pH 8.0 (5-6) Ur Specific [place] 1.004 (1.005-1.025) Urine Protein NEGATIVE (Negative) Urine Ketones NEGATIVE (NEGATIVE) Urine Blood NEGATIVE (0-5) Dhiraj/ul Urine Nitrite NEGATIVE (NEGATIVE) Urine Bilirubin NEGATIVE (NEGATIVE) Urine Urobilinogen NEGATIVE (0-1) mg/dL Ur Leukocyte Esterase NEGATIVE (NEGATIVE) Urine WBC (Auto) NONE (0-5) /HPF Urine RBC (Auto) NONE (0-2) /HPF U Epithel Cells (Auto) RARE (FEW) /HPF Urine Bacteria (Auto) NONE (NEGATIVE) /HPF Urine Culture Reflexed NO (NO) Urine Glucose NEGATIVE (NEGATIVE) mg/dL Urine Opiates Level (NEGATIVE) Ur Methadone (NEGATIVE) Urine Barbiturates (NEGATIVE) Ur Phencyclidine (PCP) (NEGATIVE) Urine Amphetamine (NEGATIVE) U Benzodiazepine Level (NEGATIVE) Urine Cocaine (NEGATIVE) Urine Marijuana (THC) (NEGATIVE) 11/14/19 11/14/19 11/14/19 Range/Units 04:45 04:45 04:45 WBC 9.6 (4.0-10.5) K/mm3 RBC 4.71 (4.1-5.4) M/mm3 Hgb 14.4 (12.0-16.0) gm/dl Hct 41.5 (35-47) % MCV 88.1 (78-100) fl MCH 30.6 (26-32) pg MCHC 34.7 (32-36) g/dl RDW 13.0 (11.5-14.0) % Plt Count 279 (150-450) K/mm3 MPV 8.6 (7.5-11.0) fl Gran % 57.9 (36.0-66.0) % Eos # (Auto) 0.15 (0-0.5) Absolute Lymphs (auto) 3.22 (1.0-4.6) Absolute Monos (auto) 0.63 (0.0-1.3) Lymphocytes % 33.7 (24.0-44.0) % Monocytes % 6.6 (0.0-12.0) % Eosinophils % 1.6 (0.00-5.0) % Basophils % 0.2 (0.0-0.4) % Absolute Granulocytes 5.53 (1.4-6.9) Basophils # 0.02 (0-0.4) Sodium 138 (137-145) mmol/L Potassium 3.8 (3.5-5.1) mmol/L Chloride 107 (98-107) mmol/L Carbon Dioxide 24 (22-30) mmol/L Anion Gap 10.5 (5-15) MEQ/L BUN 11 (7-17) mg/dL Creatinine 0.52 (0.52-1.04) mg/dL Estimated GFR > 60.0 ML/MIN Glucose 114 H (74-106) mg/dL Calcium 8.6 (8.4-10.2) mg/dL Total Bilirubin 0.50 (0.2-1.3) mg/dL AST 19 (14-36) U/L ALT 12 (0-35) U/L Alkaline Phosphatase 51 (38-126) U/L Troponin I < 0.012 (0.000-0.034) ng/mL Serum Total Protein 6.9 (6.3-8.2) g/dL Albumin 3.9 (3.5-5.0) g/dL Amylase (30-110) U/L Lipase 174 (23-300) U/L Urine Color (YELLOW) Urine Appearance (CLEAR) Urine pH (5-6) Ur Specific [place] (1.005-1.025) Urine Protein (Negative) Urine Ketones (NEGATIVE) Urine Blood (0-5) Dhiraj/ul Urine Nitrite (NEGATIVE) Urine Bilirubin (NEGATIVE) Urine Urobilinogen (0-1) mg/dL Ur Leukocyte Esterase (NEGATIVE) Urine WBC (Auto) (0-5) /HPF Urine RBC (Auto) (0-2) /HPF U Epithel Cells (Auto) (FEW) /HPF Urine Bacteria (Auto) (NEGATIVE) /HPF Urine Culture Reflexed (NO) Urine Glucose (NEGATIVE) mg/dL Urine Opiates Level (NEGATIVE) Ur Methadone (NEGATIVE) Urine Barbiturates (NEGATIVE) Ur Phencyclidine (PCP) (NEGATIVE) Urine Amphetamine (NEGATIVE) U Benzodiazepine Level (NEGATIVE) Urine Cocaine (NEGATIVE) Urine Marijuana (THC) (NEGATIVE) Accuchecks Accucheck Value: 98 - Radiology Impressions Radiology Exams & Impressions: Radiology Procedures Category Date Time Status ABDOMEN AND PELVIS W CONTRAST [CT] Stat Exams 11/13/19 15:59 Completed GALLBLADDER [US] Stat Exams 11/13/19 15:59 Completed HIDA-GALL BLADDER [NUCMED] Routine Exams 11/15/19 09:00 Ordered Assessment/Plan (1) Abdominal pain Current Visit: Yes Status: Acute Assessment & Plan: ?hydro vs pancreatitis vs less likely peptic 34yo female nonspecific 2 days RUQ abdominal pain, elevated lipase to 2x upper normal, US nondistender gallbladder no stones, benign exam (essentially nttp just always hurts), CT with mild right hydro without obstruction otherwise normal. Doesn't seem like acute cholecystitis, could be pancreatitis though doesn't completely meet diagnostic criteria of 3x normal enzymes, no ct changes, + pain. agree with HIDA scan to evaluate for possible biliary source for pancreatitis. less likely peptic disease. -await HIDA, repeat US right kidney, repeat labs serial exams -no emergent surgical intervention, continue supportive care. Code(s): R10.9 - UNSPECIFIED ABDOMINAL PAIN
--- NOTE | 2019-11-14 16:26 | XRAY ---
Indication: Hydronephrosis on recent CT. Two-dimensional renal sonogram performed. Comparison: None Both kidneys normal in reniform shape with normal color perfusion. Right kidney measures 10.1 x 5.3 x 4.5 cm and the left measures 11.0 x 5.5 x 5.5 cm. Right kidney mildly hydronephrotic. No solid/cystic mass or calculus in either kidneys. Cortical medullary differentiation preserved without cortical thinning. Images of the normally distended urinary bladder grossly unremarkable. Normal bilateral ureteral jets. Impression: Mild right-sided hydronephrosis without calculus. Normal distal ureteral jets. Remaining renal sonogram is negative.
[2019-11-15] MEDS: Sodium Chloride 0.9% 1000 ML 1,000 ML IV SCH (01:19)
[2019-11-15] MEDS: DILAUDID 2 MG INJECTION IV PRN ×3 (05:05→13:08)
[2019-11-15] MEDS: Zofran 4 MG/2 ML VIAL IV PRN (05:05)
[2019-11-15 05:24] LABS: Hematocrit 38.6 % (35-47); Hemoglobin 13.3 gm/dl (12.0-16.0); Mean Cell Volume 89.1 fl (78-100); Mean Corpuscular Hemoglobin 30.7 pg (26-32); Mean Corpuscular Hgb Concent. 34.5 g/dl (32-36); Mean Platelet Volume 8.6 fl (7.5-11.0); Platelet Count 249 K/mm3 (150-450); Red Blood Count 4.33 M/mm3 (4.1-5.4); Red Cell Distribution Width 12.6 % (11.5-14.0); White Blood Count 9.5 K/mm3 (4.0-10.5)
[2019-11-15 05:43] LABS: ALBUMIN 3.5 g/dL (3.5-5.0); ALKALINE PHOSPHATASE 46 U/L (38-126); AMYLASE 96 U/L (30-110); ANION GAP 9.6 MEQ/L (5-15); BLOOD UREA NITROGEN 9 mg/dL (7-17); CHLORIDE 106 mmol/L (98-107); Calcium 8.6 mg/dL (8.4-10.2); Carbon Dioxide 26 mmol/L (22-30); Creatinine 1 0.63 mg/dL (0.52-1.04); Glucose 78 mg/dL (74-106); LIPASE 55 U/L (23-300); Potassium 3.9 mmol/L (3.5-5.1); SGOT/AST 19 U/L (14-36); SGPT/ALT 12 U/L (0-35); SODIUM 138 mmol/L (137-145); Total Protein 6.1 g/dL (6.3-8.2)
[2019-11-15 11:55] VITALS: BP 124/57; PULSE 65; O2SAT 96
== END 2019-11-15 15:15 | disposition home or self-care (01) ==
LOC: ED 15:33 → MED SURG 18:11
PROVIDERS: ADMIT Family Medicine; ATTEND Family Medicine
DX: K85.90 Acute pancreatitis without necrosis or infection, unspecified (principal); N13.30 Unspecified hydronephrosis; R42 Dizziness and giddiness; E03.9 Hypothyroidism, unspecified; Z79.899 Other long term (current) drug therapy
CPT/HCPCS: 36000; 36415; 74177; 76705; 76770; 80053; 80307; 81001; 82150; 82962; 83690; 84484; 85025; 85027; 94762; 96374; 96375; 96376; 99285; G0378; J1170; J2270; J2405

== ENCOUNTER → 2019-11-20 | Day surgery (SDC) | payer BC ==
[~2019-11-20] MED LIST: DIPRIVAN 200 MG/20 ML IV ONE; Ketamine HCl 50 MG/ML ONE; Lactated Ringers 1,000 ML IV SCH; Xylocaine-Mpf 2% 5 Ml Vial ONE
--- NOTE | 2019-11-20 08:38 | OP ---
SURGERY DATE/TIME: 11/20/2019 0808 PREOPERATIVE DIAGNOSIS: Right upper quadrant abdominal pain. POSTOPERATIVE DIAGNOSES: 1) Mild gastritis. 2) Hiatal hernia. 3) Delayed gastric emptying. PROCEDURE: Esophagogastroduodenoscopy with cold forceps biopsy. SURGEON: Dr. Saba. ANESTHESIA: Medications were given by the anesthesia department. BRIEF HISTORY: The patient is a 34 year old white female who was hospitalized last week due to severe right upper quadrant abdominal pain. The patient had CT scan showing right hydronephrosis but no evidence of stone and there was no blood in the urine. The patient since then has had gallbladder ultrasound and HIDA scan which had been negative. The patient is felt the need to have endoscopic evaluation. She was appraised of the risks of the procedure including the risk of perforation, phlebitis, untoward reaction to medication, bleeding and missed lesions. The patient verbalized her understanding and desired to have the procedure performed. DESCRIPTION OF PROCEDURE: The patient was given the medications by the anesthesia department. She had continuous pulse oximetry, ECG monitoring, intermittent blood pressure monitoring and tidal CO2 monitoring during the examination. She was placed in the left lateral decubitus position. A bite block was placed and the flexible Olympus gastroscope was used to intubate the oropharynx. A view of the larynx was normal. The scope was easily introduced the esophagus which appeared to be normal to its distal portion where there appeared to be a hiatal hernia. The stomach was entered. The gastric olsen was suctioned as dry as we could. However there was noted to be mild to moderate amounts of gastric food stuff still left in the stomach. The gastric rugal folds distended nicely with insufflation of air. The scope was passed along the greater curvature of the stomach to the antrum. The pylorus was encountered and intubated. The duodenum inspected and found to be normal. The scope is withdrawn towards the stomach. Again, a retroflex view was obtained of the lesser curvature, fundus and cardia regions of the stomach and confirmed the presence of hiatal hernia. The scope was then redirected towards the gastric antrum where biopsies were obtained to rule out the presence of Helicobacter pylori-type organisms. The scope was then removed from the patient who tolerated the procedure well and was sent back to outpatient recovery in good condition.
[2019-11-20 09:16] VITALS: BP 133/78; PULSE 66; O2SAT 99
== END | disposition home or self-care (01) ==
LOC: SDC 06:33
PROVIDERS: ATTEND Family Medicine
DX: K29.70 Gastritis, unspecified, without bleeding (principal); K44.9 Diaphragmatic hernia without obstruction or gangrene; K30 Functional dyspepsia
CPT/HCPCS: 84703; 88305; J2704

== ENCOUNTER 2019-12-02 14:11 | Emergency (ER) | payer BC ==
[2019-12-02 14:24] VITALS: BP 117/70; PULSE 96; O2SAT 100
--- NOTE | 2019-12-02 14:47 | ERPHSYRPT ---
- History of Present Illness Time Seen by Provider: 12/02/19 14:24 Source: patient Exam Limitations: no limitations Patient Subjective Stated Complaint: pt was stung or bite by an insect on tuesday , she states it is getting worse and she is afraid she will no get to have surgery ramon for he hydronephorus Triage Nursing Assessment: pt alert, resp easy, skin w/d/p. pt has swelling to right mak area with reddness, Physician History: 34 years old female with history of hydronephrosis, chronic pain syndrome on Dilaudid presented in the ER with chief complaint of right leg insect stung/ bite 2 days ago. Patient reports she removed a black-colored insect. She noticed later on some stinging pain and gradually increasing area of redness around it. She is also complaining of increased burning and itching. She has been taking Benadryl and applying topical steroid but it still seems to be spreading. Pain is moderate intensity, constant without any significant aggravating or relieving factors. She has not been taking Dilaudid which she has because of fear of mixing it with Benadryl that can make her too sleepy. No fever or chills reported. Patient is worried about she might have to cancel her cystoscopy and possible ureteral stent placement because of this. Timing/Duration: day(s) (2), sudden, worse Quality: burning, itchy, painful Severity: moderate Location: extremities Possible Causes: insect bite, insect sting Modifying Factors: Improves With: topical steriods Associated Symptoms: rash Allergies/Adverse Reactions: ketorolac tromethamine [From Toradol] Adverse Reaction (Intermediate, Verified 12/02/19 14:24) Hives/ aggressive Home Medications: ALPRAZolam [Xanax 0.25 mg] 0.25 mg PO BIDPRN PRN 02/11/16 [History] Levothyroxine Sodium 25 Mcg [Synthroid 25 Mcg] 25 mcg PO DAILY 02/11/16 [ History] Fluticasone Propionate [Flonase NASAL] 2 puff NS QAM 11/13/19 [History] Levocetirizine Dihydrochloride [Xyzal] 5 mg PO QAM 11/13/19 [History] Hx Tetanus, Diphtheria Vaccination/Date Given: No Hx Influenza Vaccination/Date Given: No Hx Pneumococcal Vaccination/Date Given: No Immunizations Up to Date: Yes Travel Risk - International Travel Have you traveled outside of the country in past 3 weeks: No Have you or anyone close to you been diagnosed with or: No Do your reside in a community with a known COVID-19 case?: Yes If Yes where:: [place] - Coronavirus Screening Has patient experienced Coronavirus symptoms: No - Review of Systems Constitutional: No Symptoms Eyes: No Symptoms Ears, Nose, & Throat: No Symptoms Respiratory: No Symptoms Cardiac: No Symptoms Abdominal/Gastrointestinal: Abdominal Pain Genitourinary Symptoms: No Symptoms Musculoskeletal: Myalgias Skin: Cellulitis, Rash Neurological: No Symptoms Psychological: Anxiety Endocrine: No Symptoms Hematologic/Lymphatic: No Symptoms Immunological/Allergic: No Symptoms - Past Medical History Pertinent Past Medical History: Yes Neurological History: No Pertinent History ENT History: No Pertinent History Cardiac History: No Pertinent History Respiratory History: Asthma Endocrine Medical History: Hypothyroidism Musculoskeletal History: No Pertinent History GI Medical History: Pancreatitis History: Other Psycho-Social History: Depression Female Reproductive Disorders: Other Other Medical History: ovarian cysts. right kidney hydronephrosis - Past Surgical History Past Surgical History: Yes Neuro Surgical History: No Pertinent History Cardiac: No Pertinent History Respiratory: No Pertinent History Gastrointestinal: No Pertinent History Genitourinary: Other Musculoskeletal: No Pertinent History Female Surgical History: Section, Tubal Ligation Other Surgical History: cyst (diverticulosis)removed from urethra, T&A. uterine ablasion - Social History Smoking Status: Current every day smoker How long have you smoked: 20 years Exposure to second hand smoke: Yes Drug Use: none Patient Lives Alone: No - Female History Hx Last Menstrual Period: november 20 Hx Now: No - Nursing Vital Signs Nursing Vital Signs: Initial Vital Signs Temperature 98.0 F 12/02/19 14:16 Pulse Rate 96 H 12/02/19 14:16 Respiratory Rate 16 12/02/19 14:16 Blood Pressure 117/70 12/02/19 14:16 O2 Sat by Pulse Oximetry 100 12/02/19 14:16 Pain Scale Pain Intensity 5 - Physical Exam General Appearance: no apparent distress, alert, anxiety Eye Exam: PERRL/EOMI Neck Exam: normal inspection, supple, full range of motion Respiratory Exam: normal breath sounds, lungs clear Cardiovascular Exam: regular rate/rhythm, normal heart sounds Gastrointestinal/Abdomen Exam: soft Back Exam: normal range of motion Extremity Exam: inflammation, tenderness (Right leg lower third of mak with a bite keith and erythema around almost 9 x 6 cm. Blanchable. Tenderness to palpation. No discharge from bite site.), other Neurologic Exam: alert, oriented x 3, cooperative Skin Exam: rash SpO2 Interpretation: normal SpO2: 100 O2 Delivery: Room Air - Course Nursing assessment & vital signs reviewed: Yes - Progress Progress: unchanged, pain not gone completely Progress Note: 12/02/19 15:00 I believe patient has insect sting/bite with some cellulitis around. I have recommended her taking Dilaudid for pain and will start her on short course of steroids and antibiotics. Areas marked and advised to return or follow-up with primary care if it is expanding. Also discussed signs symptoms of worsening like generalized body aches/fever chills etc. needing return to ER which he seems understanding. I do not think she needs any further testing and is stable for discharge. Counseled pt/family regarding: diagnosis, need for follow-up - Departure Departure Disposition: Home Clinical Impression: Insect bite Qualifiers: Encounter type: initial encounter Site of insect bite: lower leg Laterality: right Qualified Code(s): S80.861A - Insect bite (nonvenomous), right lower leg, initial encounter Condition: Stable Critical Care Time: No Referrals: RAYSA GONZALEZ MD [Primary Care Provider] - (1-2 days for re evaluation) Instructions: Insect Bites and Stings (DC) Additional Instructions: Take pain medications which you have at home as needed. Follow-up with primary care for reevaluation. Return to ER for increasing swelling redness, excruciating pain/fever or chills. Prescriptions: Cephalexin Mh 500 mg [Keflex 500 mg] 500 mg PO TID #21 capsule Prednisone 50 mg PO DAILY #5 tablet
== END 2019-12-02 15:09 | disposition home or self-care (01) ==
LOC: ED 14:11
DX: S80.861A Insect bite (nonvenomous), right lower leg, initial encounter (principal); N13.30 Unspecified hydronephrosis; M79.89 Other specified soft tissue disorders; G89.4 Chronic pain syndrome; Z79.899 Other long term (current) drug therapy; M79.10 Myalgia, unspecified site; L03.115 Cellulitis of right lower limb; F41.9 Anxiety disorder, unspecified; E03.9 Hypothyroidism, unspecified; F32.9 Major depressive disorder, single episode, unspecified; Z72.0 Tobacco use
CPT/HCPCS: 99283

== ENCOUNTER 2021-02-16 22:08 | Emergency (ER) | payer MEDICAID, OTHER ==
[2021-02-16 23:00] LABS: Absolute Neutrophil Ct (ANC) 8.83 (1.4-6.9); BASOPHIL % 0.1 % (0.0-0.4); Basophil (Absolute #) 0.01 (0-0.4); Eosinophil % 0.7 % (0.00-5.0); Eosinophil (Absolute #) 0.09 (0-0.5); Hematocrit 42.6 % (35-47); Hemoglobin 15.5 gm/dl (12.0-16.0); Lymphocyte (Absolute #) 3.44 (1.0-4.6); Mean Cell Volume 83.2 fl (78-100); Mean Corpuscular Hemoglobin 30.3 pg (26-32); Mean Corpuscular Hgb Concent. 36.4 g/dl (32-36); Mean Platelet Volume 8.7 fl (7.5-11.0); Monocyte (Absolute #) 0.88 (0.0-1.3); Monocytes % 6.6 % (0.0-12.0); Neutrophil % 66.6 % (36.0-66.0); Platelet Count 380 K/mm3 (150-450); Red Blood Count 5.12 M/mm3 (4.1-5.4); Red Cell Distribution Width 12.3 % (11.5-14.0); White Blood Count 13.3 K/mm3 (4.0-10.5)
[2021-02-16 23:07] VITALS: BP 162/112; PULSE 81; O2SAT 98
[2021-02-16] MEDS ORDERED: DECADRON 10MG INJ. IV ONE (23:29)
--- NOTE | 2021-02-16 23:38 | ERPHSYRPT ---
- History of Present Illness Time Seen by Provider: 02/16/21 22:15 Source: patient Exam Limitations: no limitations Patient Subjective Stated Complaint: pt states she has been having pain in her lt chest and shortness of breath. tested positive for covid on 02/04 and has been feeling unwell since 02/03 Triage Nursing Assessment: pt alert and oriented, answers questions approp. pt ambualtoryw ith steady gait noted. respirations shallow, shortness of breath with exertion. Physician History: Patient is a 35-year-old female presents to our ED with complaints of left-sided chest pain and shortness of breath. Patient is Covid positive. Patient was diagnosed with Covid on February 04. However patient's chest pain or shortness of breath is a new symptom that started today. Since then she has been feeling unwell. Symptoms are constant. Symptoms are moderate in intensity. No specific worsening improving factors. No associated nausea vomiting or diarrhea. No rash. No fever at this time. Patient otherwise healthy. She voices no other complaints or concerns at this time. Timing/Duration: today Severity: moderate Modifying Factors: Improves With: movement Associated Symptoms: denies symptoms Allergies/Adverse Reactions: ketorolac tromethamine [From Toradol] Adverse Reaction (Intermediate, Verified 12/02/19 14:24) Hives/ aggressive Home Medications: ALPRAZolam [Xanax 0.25 mg] 0.25 mg PO BIDPRN PRN 02/11/16 [History] Levothyroxine Sodium 25 Mcg [Synthroid 25 Mcg] 25 mcg PO DAILY 02/11/16 [History] Fluticasone Propionate [Flonase NASAL] 2 puff NS QAM 11/13/19 [History] Levocetirizine Dihydrochloride [Xyzal] 5 mg PO QAM 11/13/19 [History] Hx Tetanus, Diphtheria Vaccination/Date Given: No Hx Influenza Vaccination/Date Given: No Hx Pneumococcal Vaccination/Date Given: No Immunizations Up to Date: No Travel Risk - International Travel Have you traveled outside of the country in past 3 weeks: No - Coronavirus Screening Are you exhibiting any of the following symptoms?: Yes Symptoms: Fever, Cough: New Onset, Shortness of Breath, Loss of Taste or Smell, Headaches/Body Aches/Fatigue - Vaccine Status Have you recieved a Covid-19 vaccination: No - Review of Systems Constitutional: No Symptoms, No Fever, No Chills Eyes: No Symptoms Ears, Nose, & Throat: No Symptoms Respiratory: No Symptoms, No Cough, No Dyspnea Cardiac: No Symptoms, No Chest Pain, No Edema, No Syncope Abdominal/Gastrointestinal: No Symptoms, No Abdominal Pain, No Nausea, No Vomiting, No Diarrhea Genitourinary Symptoms: No Symptoms, No Dysuria Musculoskeletal: No Symptoms, No Back Pain, No Neck Pain Skin: No Symptoms, No Rash Neurological: No Symptoms, No Dizziness, No Focal Weakness, No Sensory Changes Psychological: No Symptoms Endocrine: No Symptoms Hematologic/Lymphatic: No Symptoms Immunological/Allergic: No Symptoms All Other Systems: Reviewed and Negative - Past Medical History Pertinent Past Medical History: Yes Neurological History: No Pertinent History ENT History: No Pertinent History Cardiac History: No Pertinent History Respiratory History: Asthma Endocrine Medical History: Hypothyroidism Musculoskeletal History: No Pertinent History GI Medical History: Pancreatitis History: Other Psycho-Social History: Depression Female Reproductive Disorders: Other Other Medical History: ovarian cysts. right kidney hydronephrosis - Past Surgical History Past Surgical History: Yes Neuro Surgical History: No Pertinent History Cardiac: No Pertinent History Respiratory: No Pertinent History Gastrointestinal: No Pertinent History Genitourinary: Other Musculoskeletal: No Pertinent History Female Surgical History: Section, Tubal Ligation Other Surgical History: cyst (diverticulosis)removed from urethra, T&A. uterine ablasion - Social History Smoking Status: Current every day smoker How long have you smoked: 20 years Exposure to second hand smoke: Yes Drug Use: none Patient Lives Alone: No - Female History Hx Last Menstrual Period: 2 weeks Hx Now: No - Nursing Vital Signs Nursing Vital Signs: Initial Vital Signs Temperature 98.7 F 02/16/21 22:08 Pulse Rate 81 02/16/21 22:08 Respiratory Rate 18 02/16/21 22:08 Blood Pressure 162/112 02/16/21 22:08 O2 Sat by Pulse Oximetry 98 02/16/21 22:08 Pain Scale Pain Intensity 4 - Physical Exam General Appearance: no apparent distress, alert Eye Exam: PERRL/EOMI, eyes nml inspection Ears, Nose, Throat Exam: normal ENT inspection, TMs normal, pharynx normal, moist mucous membranes Neck Exam: normal inspection, non-tender, supple, full range of motion Respiratory Exam: normal breath sounds, lungs clear, No respiratory distress Cardiovascular Exam: regular rate/rhythm, normal heart sounds, normal peripheral pulses Gastrointestinal/Abdomen Exam: soft, normal bowel sounds, No tenderness, No mass Back Exam: normal inspection, normal range of motion, No CVA tenderness, No vertebral tenderness Extremity Exam: normal inspection, normal range of motion, pelvis stable Neurologic Exam: alert, oriented x 3, cooperative, normal mood/affect, nml cerebellar function, nml station & gait, sensation nml, No motor deficits Skin Exam: normal color, warm, dry, No rash Lymphatic Exam: No adenopathy SpO2 Interpretation: normal SpO2: 98 O2 Delivery: Room Air - Course Nursing assessment & vital signs reviewed: Yes Ordered Tests: Active Orders 24 hr Category Date Time Status Plant Health Care Technician STAT Care 02/16/21 22:38 Active EKG-ER Only STAT Care 02/16/21 22:36 Active IV Insertion STAT Care 02/16/21 22:36 Active Pulse Oximetry (ED) STAT Care 02/16/21 22:36 Active CHEST 1 VIEW (PORTABLE) Stat Exams 02/16/21 22:37 Ordered BLOOD CULTURE Stat Lab 02/16/21 22:37 Ordered CBC W DIFF Stat Lab 02/16/21 22:50 Completed CMP Stat Lab 02/16/21 22:50 Received D-DIMER QUANTITATIVE Stat Lab 02/16/21 22:50 Received HCG,QUALITATIVE URINE Stat Lab 02/16/21 22:37 Ordered Lactic Acid Stat Lab 02/16/21 22:36 Completed TROPONIN Q3H Lab 02/16/21 22:45 Ordered TROPONIN Q3H Lab 02/17/21 01:45 Ordered TROPONIN Q3H Lab 02/17/21 04:45 Ordered TROPONIN Q3H Lab 02/17/21 07:45 Ordered TROPONIN Q3H Lab 02/17/21 10:45 Ordered UA W/RFX UR CULTURE Stat Lab 02/16/21 22:37 Ordered Medication Summary Discontinued Medications Generic Name Dose Route Start Last Admin Trade Name Freq PRN Reason Stop Dose Admin Dexamethasone Sodium Phosphate 6 mg 02/16/21 23:29 Decadron 10mg Inj. IV 02/16/21 23:30 STAT ONE Lab/Rad Data: Laboratory Result Diagrams 02/16/21 22:50 Laboratory Results 02/16/21 02/16/21 Range/Units 22:50 22:36 WBC 13.3 H (4.0-10.5) K/mm3 RBC 5.12 (4.1-5.4) M/mm3 Hgb 15.5 (12.0-16.0) gm/dl Hct 42.6 (35-47) % MCV 83.2 (78-100) fl MCH 30.3 (26-32) pg MCHC 36.4 H (32-36) g/dl RDW 12.3 (11.5-14.0) % Plt Count 380 (150-450) K/mm3 MPV 8.7 (7.5-11.0) fl Gran % 66.6 H (36.0-66.0) % Eos # (Auto) 0.09 (0-0.5) Absolute Lymphs (auto) 3.44 (1.0-4.6) Absolute Monos (auto) 0.88 (0.0-1.3) Lymphocytes % 26.0 (24.0-44.0) % Monocytes % 6.6 (0.0-12.0) % Eosinophils % 0.7 (0.00-5.0) % Basophils % 0.1 (0.0-0.4) % Absolute Granulocytes 8.83 H (1.4-6.9) Basophils # 0.01 (0-0.4) Lactic Acid 1.2 (0.4-2.0) - Progress Progress: improved Progress Note: There is a mild leukocytosis. Remainder of labs pending. Chest x-ray pending. Vitals within normal limits. Patient's lungs are clear. Physical exam essentially nonremarkable. We will going to downtime on our computer system. The remainder of this note will be followed on paper. 02/16/21 23:41 Counseled pt/family regarding: lab results, diagnosis, need for follow-up, rad results - Departure Departure Disposition: Home Clinical Impression: COVID-19 Condition: Stable Critical Care Time: No Referrals: RAYSA GONZALEZ MD [Primary Care Provider] - Additional Instructions: Discharge/Care Plan JOVANY ALLAN was seen on 02/16/21 in the Emergency Room. The patient was counseled regarding Diagnosis,Lab results, Imaging studies, need for follow up and when to return to the Emergency Room. Prescriptions given: Discharge Note I have spoken with the patient and/or caregivers. I have explained the patient's condition, diagnosis and treatment plan based on the information available to me at this time. I have answered the patient's and/or caregiver's questions and addressed any concerns. The patient and/or caregivers have as good understanding of the patient's diagnosis, condition and treatment plan as can be expected at this point. The vital signs have been stable. The patient's condition is stable and appropriate for discharge from the emergency department. The patient will pursue further outpatient evaluation with the primary care physician or other designated or consulting physician as outlined in the discharge instructions. The patient and/or caregivers are agreeable to this plan of care and follow-up instructions have been explained in detail. The patient and/or caregivers have received these instruction. The patient/and or caregivers are aware that any significant change in condition or worsening of symptoms s hould prompt an immediate return to this or the closest emergency department or call 911.
[2021-02-16 23:42] LABS: ALBUMIN 4.5 g/dL (3.5-5.0); ALKALINE PHOSPHATASE 60 U/L (38-126); BLOOD UREA NITROGEN 14 mg/dL (7-17); CHLORIDE 105 mmol/L (98-107); Calcium 9.7 mg/dL (8.4-10.2); Carbon Dioxide 23 mmol/L (22-30); Creatinine 1 0.91 mg/dL (0.52-1.04); EST GLOMERULAR FILTRATION RATE > 60.0 ML/MIN; Glucose 91 mg/dL (74-106); Potassium 3.6 mmol/L (3.5-5.1); SGOT/AST 30 U/L (14-36); SGPT/ALT 30 U/L (0-35); SODIUM 140 mmol/L (137-145); Total Protein 7.4 g/dL (6.3-8.2)
[2021-02-16] MEDS ORDERED: DECADRON 10MG INJ. ONE (23:49)
[2021-02-17] MEDS ORDERED: Compazine 10 MG/2 ML IV ONE (00:01)
[2021-02-17] MEDS ORDERED: Compazine 10 MG/2 ML ONE (00:02)
[2021-02-17 00:26] LABS: Appearance SLIGHTLY CLOUDY (CLEAR); Bilirubin NEGATIVE (NEGATIVE); Blood NEGATIVE Ery/ul (0-5); Epithelial Cells RARE /HPF (FEW); Glucose NEGATIVE (NEGATIVE); Ketones NEGATIVE (NEGATIVE); Leukocyte Esterase NEGATIVE (NEGATIVE); Mucus SLIGHT /HPF (NEGATIVE); Nitrite NEGATIVE (NEGATIVE); Protein,Urine Dip NEGATIVE (Negative); Specific Gravity 1.019 (1.005-1.025); Urobilinogen NEGATIVE mg/dL (0-1)
--- NOTE | 2021-02-17 17:22 | XRAY ---
Exam: AP upright portable chest film from 02/16/2021. Comparison: AP upright portable chest film from 11/20/2016. Indication: Shortness of breath, covid-19 positive. Findings: The transverse heart size appears normal. The sara and mediastinal structures appear unremarkable and are unchanged from 11/20/2016. There is average inflation of the lungs. I see no air space infiltrates or groundglass opacities. Pulmonary vascularity is normal. No pneumothorax or pleural effusion is seen. No acute osseous process is seen. Impression: 1. No infiltrates or other acute cardiopulmonary disease is seen.
== END 2021-02-17 02:35 | disposition home or self-care (01) ==
LOC: ED 22:08
DX: U07.1 COVID-19 (principal)
CPT/HCPCS: 36000; 36415; 71045; 80053; 81001; 83605; 84484; 84703; 85025; 85379; 93005; 93041; 94760; 96374; 96375; 99284; J1100

== ENCOUNTER 2022-12-22 06:08 | Day surgery (SDC) | payer BC, OTHER ==
[2022-12-22] MEDS ORDERED: Lactated Ringers 1,000 ML IV SCH (06:30)
[2022-12-22] MEDS ORDERED: Transderm Scop 1.5MG Patch TOP PRN (06:45)
[2022-12-22] MEDS ORDERED: Pepcid 20 MG VIAL IV ONE (06:45)
[2022-12-22] MEDS ORDERED: Reglan 10 MG/2 ML IV ONE (06:45)
[2022-12-22] MEDS ORDERED: Xylocaine-Mpf 2% 5 Ml Vial ONE (08:07)
[2022-12-22] MEDS ORDERED: Versed 2 MG/2 ML Injection ONE (08:07)
[2022-12-22] MEDS ORDERED: DIPRIVAN 200 MG/20 ML IV ONE ×2 (08:07→08:24)
[2022-12-22 09:09] VITALS: O2SAT 100
[2022-12-22 09:18] VITALS: BP 114/70; PULSE 69
--- NOTE | 2022-12-22 09:32 | OP ---
SURGERY DATE/TIME: 12/22/2022 0816 PREOPERATIVE DIAGNOSIS: Constipation. POSTOPERATIVE DIAGNOSIS: Normal colon. PROCEDURE: Diagnostic colonoscopy. SURGEON: Vivek Cameron M.D. ANESTHESIA: MAC by Cesar Montiel CRNA. ESTIMATED BLOOD LOSS: None. SPECIMENS: None. DESCRIPTION OF PROCEDURE: After informed written consent was obtained, the patient was taken to the endoscopy suite. She was placed in left lateral decubitus position and anesthesia was titrated to desired level of consciousness. Digital rectal exam showed normal sphincter tone and no internal lesions. The scope was inserted into the rectum and sequentially the entire colonic mucosa was traversed. The level of cecum was reached and verified with direct visualization of the ileocecal valve. Upon withdrawal careful mucosal inspection revealed no gross abnormalities. Prep was noted to be good. Prior to withdrawal retroflexion showed minimal internal hemorrhoids. No other lesions were encountered. The scope was removed. The patient was transferred to the recovery room in good condition.
== END 2022-12-22 09:30 | disposition home or self-care (01) ==
LOC: SDC 06:08
PROVIDERS: ATTEND Family Medicine
DX: K59.00 Constipation, unspecified (principal)
CPT/HCPCS: J2250; J2704; A9270-GY

== ENCOUNTER 2022-12-29 18:52 | Observation (INO) | payer BC ==
[2022-12-29] MEDS ORDERED: DUONEB 0.5-3 MG/3 ml Neb IH ONE ×2 (19:07→19:25)
--- NOTE | 2022-12-29 19:22 | ERPHSYRPT ---
- History of Present Illness Time Seen by Provider: 12/29/22 19:16 Source: patient Exam Limitations: no limitations Patient Subjective Stated Complaint: C/O SOB that started yesterday and has become progressively worse. Patient states she took 6 tablets from a medrol dose pack at 5:30pm today. Last albuterol nebulizer taken at 4:10pm today. Triage Nursing Assessment: Patient brought back to ER in a W/C. She is alert and oriented; anxious. Patient is SOB and tearful. No cough. Skin tone normal. 02 sats 100% on room air. Physician History: Patient is a 37-year-old female presents to emergency department for evaluation of shortness of breath. Patient has a history of asthma and believes she is experiencing an asthma exacerbation. Symptoms started 1 day ago. Symptoms have been progressive. Shortness of breath associated with chest pain worse when she takes a deep breath. Patient called her primary care doctor today. He prescribed her a Medrol Dosepak. Patient took 6 tabs of the Medrol Dosepak at approximately 5:30 PM, almost 2 hours ago. Patient also treated herself with albuterol at 4:10 PM. Symptoms are moderate in intensity. No specific worsening improving factors although patient believes "smoke from [place]" is causing her asthma flareup. Patient's son at bedside. She voices no other comp laints or concerns at this time. Portions of this note were created with voice recognition technology. There may be grammatical, spelling, punctuation or sound alike errors Timing/Duration: yesterday Activities at Onset: none Severity of Dyspnea-Max: moderate Severity of Dyspnea-Current: mild Possible Cause: occasional episodes Modifying Factors: Improves With: albuterol inhaler, other (Albuterol improved symptoms but did not resolve the symptoms) Associated Symptoms: denies symptoms Allergies/Adverse Reactions: ketorolac tromethamine [From Toradol] Adverse Reaction (Intermediate, Verified 12/29/22 18:53) Hives/ aggressive Home Medications: Levothyroxine Sodium 25 Mcg [Synthroid 25 Mcg] 50 mcg PO DAILY 02/11/16 [History] Bupropion HCl 150 mg Sr [Wellbutrin SR 150 MG] 300 mg PO UD 11/30/22 [History] Famotidine 20 mg [Pepcid 20 MG] 20 mg PO UD 11/30/22 [History] Fexofenadine HCl [Xochitl Allergy] 180 mg PO DAILY 11/30/22 [History] Albuterol Sulfate 1 vial NEB Q4-6HPRN PRN 12/29/22 [History] Methylprednisolone 4 mg [Medrol 4 mg] See Rx Instructions .ROUTE .COMPLEX 12/29/22 [History] Hx Tetanus, Diphtheria Vaccination/Date Given: Yes Hx Influenza Vaccination/Date Given: No Hx Pneumococcal Vaccination/Date Given: No Immunizations Up to Date: Yes Travel Risk - International Travel Have you traveled outside of the country in past 3 weeks: No - Coronavirus Screening Are you exhibiting any of the following symptoms?: Yes Symptoms: Shortness of Breath Close contact with a COVID-19 positive Pt in past 14-21 Days: No - Vaccine Status Have you recieved a Covid-19 vaccination: No - Review of Systems Constitutional: No Symptoms, No Fever, No Chills Eyes: No Symptoms Ears, Nose, & Throat: No Symptoms Respiratory: No Symptoms, No Cough, No Dyspnea Cardiac: No Symptoms, No Chest Pain, No Edema, No Syncope Abdominal/Gastrointestinal: No Symptoms, No Abdominal Pain, No Nausea, No Vomiting, No Diarrhea Genitourinary Symptoms: No Symptoms, No Dysuria Musculoskeletal: No Symptoms, No Back Pain, No Neck Pain Skin: No Symptoms, No Rash Neurological: No Symptoms, No Dizziness, No Focal Weakness, No Sensory Changes Psychological: No Symptoms Endocrine: No Symptoms Hematologic/Lymphatic: No Symptoms Immunological/Allergic: No Symptoms All Other Systems: Reviewed and Negative - Past Medical History Pertinent Past Medical History: Yes Neurological History: No Pertinent History ENT History: No Pertinent History Cardiac History: No Pertinent History Respiratory History: Asthma Endocrine Medical History: Hypothyroidism Musculoskeletal History: No Pertinent History GI Medical History: Pancreatitis History: Other Psycho-Social History: Depression Female Reproductive Disorders: Other Other Medical History: ovarian cysts. right additional renal pelvis - Past Surgical History Past Surgical History: Yes Neuro Surgical History: No Pertinent History Cardiac: No Pertinent History Respiratory: No Pertinent History Gastrointestinal: No Pertinent History Genitourinary: Other Musculoskeletal: No Pertinent History Female Surgical History: Section, Tubal Ligation Other Surgical History: cyst (diverticulosis)removed from urethra, T&A. uterine ablasion - Social History Smoking Status: Former smoker How long have you smoked: 20 years Exposure to second hand smoke: No Drug Use: none Patient Lives Alone: No - Female History Hx Last Menstrual Period: 1 month ago Hx Now: No (tubal ligation) - Nursing Vital Signs Nursing Vital Signs: Initial Vital Signs Temperature 98.1 F 12/29/22 18:56 Pulse Rate 80 12/29/22 18:56 Respiratory Rate 30 H 12/29/22 18:56 Blood Pressure 164/88 12/29/22 18:56 O2 Sat by Pulse Oximetry 100 12/29/22 18:56 Pain Scale Pain Intensity 7 - Physical Exam General Appearance: no apparent distress, alert Eye Exam: PERRL/EOMI, eyes nml inspection Ears, Nose, Throat Exam: hearing grossly normal, normal ENT inspection, normal pharynx Neck Exam: normal inspection, supple, full range of motion Respiratory Exam: normal breath sounds, lungs clear, respiratory distress, other (Lungs sound clear however breath sounds are diminished. Patient states she is guarding due to pain upon inspiration. Patient is tachypneic.) Cardiovascular/Chest Exam: normal heart sounds, regular rate/rhythm Abdominal/Gastrointestinal Exam: soft, No tenderness, No distention, No mass Extremity Exam: non-tender, normal range of motion, normal inspection, no calf tenderness, no pedal edema Neurologic Exam: alert, oriented x 3, cooperative, rn anesthetist II-XII nml as tested, sensation nml, No motor deficits Skin Exam: normal color, warm, No dry Lymphatic Exam: No adenopathy SpO2 Interpretation: normal SpO2: 100 O2 Delivery: Room Air - Course Nursing assessment & vital signs reviewed: Yes - CT Exams Chest CT Interpretation: Tele-radiologist Report (No comps. Normal CT PE exam) Ordered Tests: Active Orders 24 hr Category Date Time Status CHEST WITH CONTRAST [CT] Stat Exams 12/29/22 19:15 Taken ABG [ARTERIAL BLOOD GASES] Stat Lab 12/29/22 22:21 Completed ACETAMINOPHEN Stat Lab 12/29/22 23:39 Completed CBC W DIFF Stat Lab 12/29/22 04:04 Completed CMP Stat Lab 12/29/22 04:04 Completed D-DIMER QUANTITATIVE Stat Lab 12/29/22 04:05 Completed ETHYL ALCOHOL Stat Lab 12/29/22 23:39 Completed HCG QUALITATIVE, URINE Stat Lab 12/29/22 19:51 Completed Lactic Acid Stat Lab 12/29/22 22:30 Completed NT PRO BNPII Stat Lab 12/29/22 04:04 Completed SALICYLATE Stat Lab 12/29/22 23:39 Completed TROPONIN Q4H Lab 12/29/22 04:05 Completed TROPONIN Q4H Lab 12/29/22 23:39 Received TROPONIN Q4H Lab 12/30/22 03:15 Ordered UA W/RFX UR CULTURE Stat Lab 12/29/22 19:51 Completed Urine Triage Profile Stat Lab 12/29/22 23:39 Completed Respiratory Therapy Assessment DAILY RT 12/29/22 19:25 Active Transfer Order Routine Transfer 12/30/22 Ordered Medication Summary Generic Name Dose Route Start Last Admin Trade Name Freq PRN Reason Stop Dose Admin Magnesium Sulfate/Dextrose 100 mls @ 100 mls/hr 12/29/22 19:30 12/29/22 20:38 Magnesium 1 Gm / 100 Ml D5w IV 12/29/22 21:29 100 mls/hr Q1H SHREE Administration Discontinued Medications Generic Name Dose Route Start Last Admin Trade Name Freq PRN Reason Stop Dose Admin Albuterol/Ipratropium Confirm 12/29/22 19:07 Ipratropium/Albuterol Sulfate 3 Ml Ampul.Neb Administered 12/29/22 19:08 Dose 3 ml IH .STK-MED ONE Albuterol/Ipratropium 3 ml 12/29/22 19:25 12/29/22 19:25 Ipratropium/Albuterol Sulfate 3 Ml Ampul.Neb IH 12/29/22 19:26 3 ml STAT ONE Administration Alprazolam 0.25 mg 12/29/22 23:53 12/29/22 23:57 Alprazolam 0.25 Mg Tablet PO 12/29/22 23:54 0.25 mg STAT ONE Administration Alprazolam Confirm 12/29/22 23:56 Alprazolam 0.25 Mg Tablet Administered 12/29/22 23:57 Dose 0.25 mg .ROUTE .STK-MED ONE Sodium Chloride 1,000 mls @ 999 mls/hr 12/29/22 22:26 12/29/22 23:41 Sodium Chloride 0.9% 1000 Ml IV 12/29/22 23:26 Infused .Q1H1M STA Infusion Sodium Chloride Confirm 12/29/22 22:27 Sodium Chloride 0.9% 1000 Ml Administered 12/29/22 22:28 Dose 1,000 mls @ ud .ROUTE .K-MED ONE Lab/Rad Data: Laboratory Result Diagrams 12/29/22 04:04 12/29/22 04:04 Laboratory Results 12/29/22 12/29/22 12/29/22 Range/Units Unknown 23:39 23:39 WBC (4.0-10.5) x10^3/uL RBC (4.1-5.4) x10^6/uL Hgb (12.0-16.0) g/dL Hct (35-47) % MCV (78-100) fL MCH (26-32) pg MCHC (32-36) g/dL RDW (11.5-14.0) % Plt Count (150-450) x10^3/uL MPV (7.5-11.0) fL Gran % (36.0-66.0) % Immature Gran % (Auto) (0.00-0.4) % Nucleat RBC Rel Count (0.00-0.1) % Eos # (Auto) (0-0.5) x10^3/uL Immature Gran # (Auto) (0.00-0.03) x10^3u/L Absolute Lymphs (auto) (1.0-4.6) x10^3/uL Absolute Monos (auto) (0.0-1.3) x10^3/uL Absolute Nucleated RBC (0.00-0.01) x10^3u/L Lymphocytes % (24.0-44.0) % Monocytes % (0.0-12.0) % Eosinophils % (0.00-5.0) % Basophils % (0.0-0.4) % Absolute Granulocytes (1.4-6.9) x10^3/uL Basophils # (0-0.4) x10^3/uL D-Dimer (0.0-0.50) mg/L Puncture Site pCO2 (35-45) mmHg pO2 (75-100) mmHg Base Excess (-2.0-2.0) O2 Saturation (94-100) g/dF ABG pH (7.35-7.45) ABG HCO3 (22-28) ABG O2 Sat (Measured) (95-100) % Dioni Test A-a Gradient a/A Ratio Hemoglobin Carboxyhemoglobin (0.0-6.9) % THgb Methemoglobin (1.4-1.5) % Temperature C POC O2 Flow Rate % Sodium (137-145) mmol/L Potassium (3.5-5.1) mmol/L Chloride (98-107) mmol/L Carbon Dioxide (22-30) mmol/L Anion Gap (5-15) MEQ/L BUN (7-17) mg/dL Creatinine (0.52-1.04) mg/dL Estimated GFR ML/MIN Glucose (74-106) mg/dL Lactic Acid (0.4-2.0) Calcium (8.4-10.2) mg/dL Total Bilirubin (0.2-1.3) mg/dL AST (14-36) U/L ALT (0-35) U/L Alkaline Phosphatase (38-126) U/L Troponin I (0.000-0.034) ng/mL NT-Pro-B Natriuret Pep (<300) pg/mL Serum Total Protein (6.3-8.2) g/dL Albumin (3.5-5.0) g/dL Urine Color (Yellow) Urine Appearance (Clear) Urine pH (4.6-8.0) Ur Specific Luana (1.005-1.030) Urine Protein (Negative) Urine Glucose (UA) (Negative) mg/dL Urine Ketones (Negative) Urine Blood (Negative) Urine Nitrite (Negative) Urine Bilirubin (Negative) Urine Urobilinogen (0.2) mg/dL Ur Leukocyte Esterase (Negative) U Hyaline Cast (Auto) (0-2) /LPF Urine Microscopic RBC (0-5) /HPF Urine Microscopic WBC (0-5) /HPF Ur Epithelial Cells (None Seen) /HPF Urine Bacteria (None Seen) /HPF Urine Culture Reflexed (NO) Urine HCG, Qual (NEGATIVE) Salicylates < 1.0 L (2-20) mg/dL Urine Opiates Level NEGATIVE (NEGATIVE) Ur Methadone NEGATIVE (NEGATIVE) Acetaminophen < 10 L (10-30) ug/ml Urine Barbiturates NEGATIVE (NEGATIVE) Ur Phencyclidine (PCP) NEGATIVE (NEGATIVE) Urine Amphetamine NEGATIVE (NEGATIVE) U Benzodiazepine Level NEGATIVE (NEGATIVE) Urine Cocaine NEGATIVE (NEGATIVE) Urine Marijuana (THC) NEGATIVE (NEGATIVE) Ethyl Alcohol < 10 (0-10) mg/dL Influenza Type A Ag NEGATIVE (NEGATIVE) Influenza Type B Ag NEGATIVE (NEGATIVE) RSV (PCR) NEGATIVE (NEGATIVE) SARS-CoV-2 (PCR) NEGATIVE (NEGATIVE) 12/29/22 12/29/22 12/29/22 Range/Units 23:39 22:30 22:21 WBC (4.0-10.5) x10^3/uL RBC (4.1-5.4) x10^6/uL Hgb (12.0-16.0) g/dL Hct (35-47) % MCV (78-100) fL MCH (26-32) pg MCHC (32-36) g/dL RDW (11.5-14.0) % Plt Count (150-450) x10^3/uL MPV (7.5-11.0) fL Gran % (36.0-66.0) % Immature Gran % (Auto) (0.00-0.4) % Nucleat RBC Rel Count (0.00-0.1) % Eos # (Auto) (0-0.5) x10^3/uL Immature Gran # (Auto) (0.00-0.03) x10^3u/L Absolute Lymphs (auto) (1.0-4.6) x10^3/uL Absolute Monos (auto) (0.0-1.3) x10^3/uL Absolute Nucleated RBC (0.00-0.01) x10^3u/L Lymphocytes % (24.0-44.0) % Monocytes % (0.0-12.0) % Eosinophils % (0.00-5.0) % Basophils % (0.0-0.4) % Absolute Granulocytes (1.4-6.9) x10^3/uL Basophils # (0-0.4) x10^3/uL D-Dimer (0.0-0.50) mg/L Puncture Site RIGHT BRACHIAL pCO2 28 L (35-45) mmHg pO2 120 H (75-100) mmHg Base Excess -2.5 L (-2.0-2.0) O2 Saturation 98.1 (94-100) g/dF ABG pH 7.46 H (7.35-7.45) ABG HCO3 19.9 L (22-28) ABG O2 Sat (Measured) 99.7 (95-100) % Dioni Test NOT APPLICABLE A-a Gradient -5 a/A Ratio 1.04 Hemoglobin 14.8 Carboxyhemoglobin 0.9 (0.0-6.9) % THgb Methemoglobin 0.7 L (1.4-1.5) % Temperature 37.0 C POC O2 Flow Rate 21 % Sodium (137-145) mmol/L Potassium 4.0 (3.5-5.1) mmol/L Chloride (98-107) mmol/L Carbon Dioxide (22-30) mmol/L Anion Gap (5-15) MEQ/L BUN (7-17) mg/dL Creatinine (0.52-1.04) mg/dL Estimated GFR ML/MIN Glucose (74-106) mg/dL Lactic Acid 1.2 (0.4-2.0) Calcium (8.4-10.2) mg/dL Total Bilirubin (0.2-1.3) mg/dL AST (14-36) U/L ALT (0-35) U/L Alkaline Phosphatase (38-126) U/L Troponin I < 0.012 (0.000-0.034) ng/mL NT-Pro-B Natriuret Pep (<300) pg/mL Serum Total Protein (6.3-8.2) g/dL Albumin (3.5-5.0) g/dL Urine Color (Yellow) Urine Appearance (Clear) Urine pH (4.6-8.0) Ur Specific Luana (1.005-1.030) Urine Protein (Negative) Urine Glucose (UA) (Negative) mg/dL Urine Ketones (Negative) Urine Blood (Negative) Urine Nitrite (Negative) Urine Bilirubin (Negative) Urine Urobilinogen (0.2) mg/dL Ur Leukocyte Esterase (Negative) U Hyaline Cast (Auto) (0-2) /LPF Urine Microscopic RBC (0-5) /HPF Urine Microscopic WBC (0-5) /HPF Ur Epithelial Cells (None Seen) /HPF Urine Bacteria (None Seen) /HPF Urine Culture Reflexed (NO) Urine HCG, Qual (NEGATIVE) Salicylates (2-20) mg/dL Urine Opiates Level (NEGATIVE) Ur Methadone (NEGATIVE) Acetaminophen (10-30) ug/ml Urine Barbiturates (NEGATIVE) Ur Phencyclidine (PCP) (NEGATIVE) Urine Amphetamine (NEGATIVE) U Benzodiazepine Level (NEGATIVE) Urine Cocaine (NEGATIVE) Urine Marijuana (THC) (NEGATIVE) Ethyl Alcohol (0-10) mg/dL Influenza Type A Ag (NEGATIVE) Influenza Type B Ag (NEGATIVE) RSV (PCR) (NEGATIVE) SARS-CoV-2 (PCR) (NEGATIVE) 12/29/22 12/29/22 12/29/22 Range/Units 19:51 19:51 04:05 WBC (4.0-10.5) x10^3/uL RBC (4.1-5.4) x10^6/uL Hgb (12.0-16.0) g/dL Hct (35-47) % MCV (78-100) fL MCH (26-32) pg MCHC (32-36) g/dL RDW (11.5-14.0) % Plt Count (150-450) x10^3/uL MPV (7.5-11.0) fL Gran % (36.0-66.0) % Immature Gran % (Auto) (0.00-0.4) % Nucleat RBC Rel Count (0.00-0.1) % Eos # (Auto) (0-0.5) x10^3/uL Immature Gran # (Auto) (0.00-0.03) x10^3u/L Absolute Lymphs (auto) (1.0-4.6) x10^3/uL Absolute Monos (auto) (0.0-1.3) x10^3/uL Absolute Nucleated RBC (0.00-0.01) x10^3u/L Lymphocytes % (24.0-44.0) % Monocytes % (0.0-12.0) % Eosinophils % (0.00-5.0) % Basophils % (0.0-0.4) % Absolute Granulocytes (1.4-6.9) x10^3/uL Basophils # (0-0.4) x10^3/uL D-Dimer (0.0-0.50) mg/L Puncture Site pCO2 (35-45) mmHg pO2 (75-100) mmHg Base Excess (-2.0-2.0) O2 Saturation (94-100) g/dF ABG pH (7.35-7.45) ABG HCO3 (22-28) ABG O2 Sat (Measured) (95-100) % Dioni Test A-a Gradient a/A Ratio Hemoglobin Carboxyhemoglobin (0.0-6.9) % THgb Methemoglobin (1.4-1.5) % Temperature C POC O2 Flow Rate % Sodium (137-145) mmol/L Potassium (3.5-5.1) mmol/L Chloride (98-107) mmol/L Carbon Dioxide (22-30) mmol/L Anion Gap (5-15) MEQ/L BUN (7-17) mg/dL Creatinine (0.52-1.04) mg/dL Estimated GFR ML/MIN Glucose (74-106) mg/dL Lactic Acid (0.4-2.0) Calcium (8.4-10.2) mg/dL Total Bilirubin (0.2-1.3) mg/dL AST (14-36) U/L ALT (0-35) U/L Alkaline Phosphatase (38-126) U/L Troponin I < 0.012 (0.000-0.034) ng/mL NT-Pro-B Natriuret Pep (<300) pg/mL Serum Total Protein (6.3-8.2) g/dL Albumin (3.5-5.0) g/dL Urine Color Yellow (Yellow) Urine Appearance Clear (Clear) Urine pH 8.0 (4.6-8.0) Ur Specific Luana <=1.005 (1.005-1.030) Urine Protein Negative (Negative) Urine Glucose (UA) Negative (Negative) mg/dL Urine Ketones Negative (Negative) Urine Blood Negative (Negative) Urine Nitrite Negative (Negative) Urine Bilirubin Negative (Negative) Urine Urobilinogen 0.2 (0.2) mg/dL Ur Leukocyte Esterase Negative (Negative) U Hyaline Cast (Auto) NONE SEEN (0-2) /LPF Urine Microscopic RBC 0-2 (0-5) /HPF Urine Microscopic WBC 0-2 (0-5) /HPF Ur Epithelial Cells None Seen (None Seen) /HPF Urine Bacteria None Seen (None Seen) /HPF Urine Culture Reflexed NO (NO) Urine HCG, Qual NEGATIVE (NEGATIVE) Salicylates (2-20) mg/dL Urine Opiates Level (NEGATIVE) Ur Methadone (NEGATIVE) Acetaminophen (10-30) ug/ml Urine Barbiturates (NEGATIVE) Ur Phencyclidine (PCP) (NEGATIVE) Urine Amphetamine (NEGATIVE) U Benzodiazepine Level (NEGATIVE) Urine Cocaine (NEGATIVE) Urine Marijuana (THC) (NEGATIVE) Ethyl Alcohol (0-10) mg/dL Influenza Type A Ag (NEGATIVE) Influenza Type B Ag (NEGATIVE) RSV (PCR) (NEGATIVE) SARS-CoV-2 (PCR) (NEGATIVE) 12/29/22 12/29/22 12/29/22 Range/Units 04:05 04:04 04:04 WBC 10.2 (4.0-10.5) x10^3/uL RBC 4.80 (4.1-5.4) x10^6/uL Hgb 14.6 (12.0-16.0) g/dL Hct 41.5 (35-47) % MCV 86.5 (78-100) fL MCH 30.4 (26-32) pg MCHC 35.2 (32-36) g/dL RDW 12.0 (11.5-14.0) % Plt Count 310 (150-450) x10^3/uL MPV 8.4 (7.5-11.0) fL Gran % 76.8 H (36.0-66.0) % Immature Gran % (Auto) 0.3 (0.00-0.4) % Nucleat RBC Rel Count 0.0 (0.00-0.1) % Eos # (Auto) 0.03 (0-0.5) x10^3/uL Immature Gran # (Auto) 0.03 (0.00-0.03) x10^3u/L Absolute Lymphs (auto) 1.88 (1.0-4.6) x10^3/uL Absolute Monos (auto) 0.39 (0.0-1.3) x10^3/uL Absolute Nucleated RBC 0.00 (0.00-0.01) x10^3u/L Lymphocytes % 18.5 L (24.0-44.0) % Monocytes % 3.8 (0.0-12.0) % Eosinophils % 0.3 (0.00-5.0) % Basophils % 0.3 (0.0-0.4) % Absolute Granulocytes 7.81 H (1.4-6.9) x10^3/uL Basophils # 0.03 (0-0.4) x10^3/uL D-Dimer < 0.19 (0.0-0.50) mg/L Puncture Site pCO2 (35-45) mmHg pO2 (75-100) mmHg Base Excess (-2.0-2.0) O2 Saturation (94-100) g/dF ABG pH (7.35-7.45) ABG HCO3 (22-28) ABG O2 Sat (Measured) (95-100) % Dioni Test A-a Gradient a/A Ratio Hemoglobin Carboxyhemoglobin (0.0-6.9) % THgb Methemoglobin (1.4-1.5) % Temperature C POC O2 Flow Rate % Sodium 142 (137-145) mmol/L Potassium 3.7 (3.5-5.1) mmol/L Chloride 104 (98-107) mmol/L Carbon Dioxide 21 L (22-30) mmol/L Anion Gap 20.2 H (5-15) MEQ/L BUN 10 (7-17) mg/dL Creatinine 0.82 (0.52-1.04) mg/dL Estimated GFR > 60.0 ML/MIN Glucose 96 (74-106) mg/dL Lactic Acid (0.4-2.0) Calcium 10.0 (8.4-10.2) mg/dL Total Bilirubin 0.50 (0.2-1.3) mg/dL AST 39 H (14-36) U/L ALT 32 (0-35) U/L Alkaline Phosphatase 63 (38-126) U/L Troponin I (0.000-0.034) ng/mL NT-Pro-B Natriuret Pep 32.3 (<300) pg/mL Serum Total Protein 8.6 H (6.3-8.2) g/dL Albumin 5.0 (3.5-5.0) g/dL Urine Color (Yellow) Urine Appearance (Clear) Urine pH (4.6-8.0) Ur Specific Luana (1.005-1.030) Urine Protein (Negative) Urine Glucose (UA) (Negative) mg/dL Urine Ketones (Negative) Urine Blood (Negative) Urine Nitrite (Negative) Urine Bilirubin (Negative) Urine Urobilinogen (0.2) mg/dL Ur Leukocyte Esterase (Negative) U Hyaline Cast (Auto) (0-2) /LPF Urine Microscopic RBC (0-5) /HPF Urine Microscopic WBC (0-5) /HPF Ur Epithelial Cells (None Seen) /HPF Urine Bacteria (None Seen) /HPF Urine Culture Reflexed (NO) Urine HCG, Qual (NEGATIVE) Salicylates (2-20) mg/dL Urine Opiates Level (NEGATIVE) Ur Methadone (NEGATIVE) Acetaminophen (10-30) ug/ml Urine Barbiturates (NEGATIVE) Ur Phencyclidine (PCP) (NEGATIVE) Urine Amphetamine (NEGATIVE) U Benzodiazepine Level (NEGATIVE) Urine Cocaine (NEGATIVE) Urine Marijuana (THC) (NEGATIVE) Ethyl Alcohol (0-10) mg/dL Influenza Type A Ag (NEGATIVE) Influenza Type B Ag (NEGATIVE) RSV (PCR) (NEGATIVE) SARS-CoV-2 (PCR) (NEGATIVE) - Progress Progress: improved Air Movement: good Progress Note: Patient a 37-year-old female presents to emergency department for evaluation of shortness of breath and hyperventilation. Patient is experiencing chest pain particularly upon inspiration. Patient states she has a history of asthma believes she was having an asthma flareup. Patient self administered Medrol Dosepak tabs just prior to arrival. No additional steroids administered. No Solu-Medrol ordered. Physical exam lungs are clear. No history of PE DVT. Patient received prednisone prior to arrival. Testing included ABG which revealed a respiratory alkalosis. CBC within normal limits. CMP revealed a decreased bicarb likely due to hyperventilation. Anion gap 20.6 COVID test negative. D-dimer negative. Toxicology screen negative. Lactic acid negative. BNP negative troponin negative. Urinalysis negative. Patient received a DuoNeb in our ED. Magnesium infused. Patient felt better however still felt short of breath. CTA chest performed to rule out PE. No PE observed on CTA chest. In light of anion gap acidosis and respiratory alkalosis we did a toxicology screen to check for salicylates or any other positive findings. Patient denied history of drug use. Patient's father felt it was an anxiety attack. He advised patient that we give her a dose of Xanax. Patient stated that she was on Xanax for 3 years and weaned herself off. A dose of 0.25 mg p.o. Xanax was administered. IV fluids infused due to elevated anion gap acidosis. 2 g magnesium administered for bronchial smooth muscle relaxation. Patient improved somewhat while in our ED. However patient was still tachypneic and speaking in short sentences due to shortness of breath. Patient admitted for ongoing treatment of shortness of breath observation and evaluation. Plan of care discussed with patient. She agreed to admission [facility] for further evaluation and treatment. Complexity of problem addressed is moderate acute complicated, new diagnosis with uncertain prognosis No critical care time Complex of data reviewed and analyzed is extensive. Testing ordered testing reviewed and analyzed by Dr. Sanchez. Clinical correlation made between patient's laboratory findings and physical exam findings. Plan of care discussed with hospitalist Dr. Mckeon who accepted admission to observation. Risk of complication and or risk of morbidity/mortality of patient management is high. Patient received nebulizer treatment and will require hospitalization for ongoing monitoring and treatment. Plan of care established via shared decision making. Vital stable. Portions of this note were created with voice recognition technology. There may be grammatical, spelling, punctuation or sound alike errors 12/30/22 00:21 Blood Culture(s) Obtained: No Antibiotics given: No Discussed with DrAbilio: Other Will see patient in: hospital (observation) Counseled pt/family regarding: lab results, diagnosis, rad results - Departure Departure Disposition: Observation Clinical Impression: SOB (shortness of breath), Respiratory alkalosis, Hyperventilation, High anion gap metabolic acidosis, History of asthma Condition: Stable Critical Care Time: No
[2022-12-29] MEDS ORDERED: Magnesium 1 Gm / 100 Ml D5W*** 200 ML IV ONE (19:41)
[2022-12-29 19:59] LABS: Absolute Neutrophil Ct (ANC) 7.81 x10^3/uL (1.4-6.9); BASOPHIL % 0.3 % (0.0-0.4); Basophil (Absolute #) 0.03 x10^3/uL (0-0.4); Eosinophil % 0.3 % (0.00-5.0); Eosinophil (Absolute #) 0.03 x10^3/uL (0-0.5); Hematocrit 41.5 % (35-47); Hemoglobin 14.6 g/dL (12.0-16.0); IMMATURE GRAN # 0.03 x10^3u/L (0.00-0.03); IMMATURE GRAN % 0.3 % (0.00-0.4); Lymphocyte (Absolute #) 1.88 x10^3/uL (1.0-4.6); Lymphocytes % 18.5 % (24.0-44.0); Mean Cell Volume 86.5 fL (78-100); Mean Corpuscular Hemoglobin 30.4 pg (26-32); Mean Corpuscular Hgb Concent. 35.2 g/dL (32-36); Mean Platelet Volume 8.4 fL (7.5-11.0); Monocyte (Absolute #) 0.39 x10^3/uL (0.0-1.3); Monocytes % 3.8 % (0.0-12.0); Neutrophil % 76.8 % (36.0-66.0); Platelet Count 310 x10^3/uL (150-450); White Blood Count 10.2 x10^3/uL (4.0-10.5)
[2022-12-29 19:59] LABS: HCG URINE TEST NEGATIVE (NEGATIVE)
[2022-12-29 20:03] LABS: Appearance Clear (Clear); Bacteria None Seen /HPF (None Seen); Bilirubin Negative (Negative); Blood Negative (Negative); Epithelial Cells None Seen /HPF (None Seen); Glucose, Urine Negative (Negative); Hyaline Casts NONE SEEN /LPF (0-2); Ketones Negative (Negative); Leukocyte Esterase Negative (Negative); Nitrite Negative (Negative); Protein,Urine Dip Negative (Negative); RBC 0-2 /HPF (0-5); Specific Gravity <=1.005 (1.005-1.030); Urobilinogen 0.2 mg/dL (0.2); WBC 0-2 /HPF (0-5)
[2022-12-29 20:04] LABS: ADD URINE CULTURE? NO (NO)
[2022-12-29] MEDS: Magnesium 1 Gm / 100 Ml D5W*** 100 ML IV SCH ×2 (20:07→20:38)
[2022-12-29 20:22] LABS: ALKALINE PHOSPHATASE 63 U/L (38-126); ANION GAP 20.2 MEQ/L (5-15); BLOOD UREA NITROGEN 10 mg/dL (7-17); CHLORIDE 104 mmol/L (98-107); Carbon Dioxide 21 mmol/L (22-30); Creatinine 1 0.82 mg/dL (0.52-1.04); EST GLOMERULAR FILTRATION RATE > 60.0 ML/MIN; Glucose 96 mg/dL (74-106); NT PRO BNPII 32.3 pg/mL (<300); Potassium 3.7 mmol/L (3.5-5.1); SGOT/AST 39 U/L (14-36); SGPT/ALT 32 U/L (0-35); SODIUM 142 mmol/L (137-145); Total Protein 8.6 g/dL (6.3-8.2)
[2022-12-29 21:17] LABS: INFLUENZA A NEGATIVE (NEGATIVE); INFLUENZA B NEGATIVE (NEGATIVE); RESPIRATORY SYNCTIAL VIRUS NEGATIVE (NEGATIVE); SARS-CoV-2 Xpert Express NEGATIVE (NEGATIVE)
[2022-12-29 22:26] LABS: A-aADO2 -5; ABG HEMOGLOBIN 14.8; ABG SITE RIGHT BRACHIAL; ARTERIAL BLD GAS O2 SATURATION 99.7 % (95-100); ARTERIAL BLOOD GAS BASE EXCESS -2.5 (-2.0-2.0); ARTERIAL BLOOD GAS FIO2 21 %; ARTERIAL BLOOD GAS PCO2 28 mmHg (35-45); ARTERIAL BLOOD GAS PO2 120 mmHg (75-100); ARTERIAL BLOOD GAS pH 7.46 (7.35-7.45); CARBOXYHEMOGLOBIN 0.9 % THgb (0.0-6.9); HCO3- 19.9 (22-28); HGB O2 SAT 98.1 g/dF (94-100); Methhemoglobin 0.7 % (1.4-1.5); paO2 pAO1 1.04
[2022-12-29] MEDS ORDERED: Sodium Chloride 0.9% 1000 ML 1,000 ML IV STA (22:26)
[2022-12-29] MEDS ORDERED: Sodium Chloride 0.9% 1000 ML 1,000 ML ONE (22:27)
[2022-12-29 23:46] LABS: ACETAMINOPHEN < 10 ug/ml (10-30); ETHYL ALCOHOL < 10 mg/dL (0-10); SALICYLATE < 1.0 mg/dL (2-20)
[2022-12-29] MEDS ORDERED: xanAX 0.25 MG PO ONE (23:53)
[2022-12-29 23:56] LABS: Amphetamine,Urine NEGATIVE (NEGATIVE); Barbiturate,Urine NEGATIVE (NEGATIVE); Benzodiazepine,Urine NEGATIVE (NEGATIVE); Cocaine,Urine NEGATIVE (NEGATIVE); Methadone,Urine NEGATIVE (NEGATIVE); Opiate,Urine NEGATIVE (NEGATIVE); PCP,Urine NEGATIVE (NEGATIVE); THC,Urine NEGATIVE (NEGATIVE)
[2022-12-29] MEDS ORDERED: xanAX 0.25 MG ONE (23:56)
[2022-12-30] MEDS ORDERED: xanAX 0.25 MG PO SCH (01:00)
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
[2022-12-30] MEDS: DUONEB 0.5-3 MG/3 ml Neb IH SCH ×6 (02:00→22:05)
[2022-12-30] MEDS ORDERED: PROVENTIL 2.5 MG/3 ML NEB IH SCH (03:00)
[2022-12-30 05:29] LABS: Hematocrit 38.5 % (35-47); Hemoglobin 13.9 g/dL (12.0-16.0); Mean Cell Volume 85.6 fL (78-100); Mean Corpuscular Hemoglobin 30.9 pg (26-32); Mean Corpuscular Hgb Concent. 36.1 g/dL (32-36); Mean Platelet Volume 8.6 fL (7.5-11.0); Platelet Count 295 x10^3/uL (150-450); Red Cell Distribution Width 12.1 % (11.5-14.0); White Blood Count 12.6 x10^3/uL (4.0-10.5)
[2022-12-30] MEDS ORDERED: solu-MEDROL ONE (05:55)
[2022-12-30] MEDS ORDERED: Sterile H2O 10 ml IJ ONE (05:55)
[2022-12-30 06:02] LABS: ALBUMIN 4.3 g/dL (3.5-5.0); ALKALINE PHOSPHATASE 49 U/L (38-126); ANION GAP 14.6 MEQ/L (5-15); BLOOD UREA NITROGEN 8 mg/dL (7-17); CHLORIDE 109 mmol/L (98-107); Calcium 8.8 mg/dL (8.4-10.2); Carbon Dioxide 20 mmol/L (22-30); Creatinine 1 0.61 mg/dL (0.52-1.04); EST GLOMERULAR FILTRATION RATE > 60.0 ML/MIN; Glucose 107 mg/dL (74-106); SGOT/AST 29 U/L (14-36); SGPT/ALT 27 U/L (0-35); SODIUM 139 mmol/L (137-145); Total Protein 7.2 g/dL (6.3-8.2)
[2022-12-30] MEDS: solu-MEDROL 60 MG, Sterile H2O 10 ml 2 ML IV SCH ×6 (06:03→17:43)
[2022-12-30] MEDS: xanAX 0.25 MG PO PRN ×3 (08:36→21:17)
--- NOTE | 2022-12-30 08:42 | XRAY ---
Indication: Chest pain and short of breath. Pulmonary embolus. Multiple contiguous axial images obtained through the chest using 80 cc Isovue 370 contrast and PE protocol. Comparison: None Good opacification of the pulmonary arteries to includes the lobar and segmental branches. No pulmonary embolus. Heart is not enlarged. Aorta is normal in course and caliber. Small right hilar chunky calcified nodes. No pathologic mediastinal/hilar lymphadenopathy. Lungs inflated and clear with incidental small right middle lobe calcified granuloma. Bony thorax intact. Limited upper abdomen unremarkable. Impression: Normal CT PE exam. Incidental old granulomatous disease.
[2022-12-30] MEDS: CLARITIN 10 MG PO SCH (09:12)
[2022-12-30] MEDS: Wellbutrin SR 150 MG PO SCH (09:12)
[2022-12-30] MEDS: Pepcid 20 MG PO SCH (09:12)
[2022-12-30] MEDS: SYNTHROID 50 MCG PO SCH (09:12)
[2022-12-30] MEDS: ENOXAPARIN SODIUM SQ SCH (09:13)
[2022-12-30] MEDS ORDERED: SYNTHROID 25 MCG PO SCH (10:00)
[2022-12-30] MEDS ORDERED: NON-FORMULARY ITEM (Fexofenadine Hcl [Allegra Allergy] 180 MG Tablet) PO SCH (10:00)
--- NOTE | 2022-12-30 14:58 | TM.IN ---
Tele-Medicine Incident Note - Incident Note Tel-Medicine Incident Note: 12/30/22 1456 Patient seen earlier this morning by overnight physician and admitted for asthma exacerbation. She appears to be a little bit improved today, able to speak in more complete sentences, although still having some chest heaviness. She remains on room air, doing well at rest. She was able to ambulate in the hallway and take a shower today, but became very dyspneic along with this. Also appears to have a large component of anxiety contributing to this. She is asking if she can get a regular steroid inhaler controller on discharge, as well as some PRN Xanax. She is also interested in changing her home albuterol nebulizer to DuoNeb, as she feels that has been more effective during her stay. We will continue to observe overnight tonight, and likely plan on discharge home tomorrow. Telemedicine Encounter - Telemedicine Encounter Telemedicine Encounter: The entirety of this encounter was performed via Telemedicine"
[2022-12-31] MEDS: solu-MEDROL 60 MG, Sterile H2O 10 ml 2 ML IV SCH ×4 (00:26→05:55)
[2022-12-31] MEDS: DUONEB 0.5-3 MG/3 ml Neb IH SCH (03:11)
[2022-12-31] MEDS: xanAX 0.25 MG PO PRN (06:02)
[2022-12-31] MEDS ORDERED: DUONEB 0.5-3 MG/3 ml Neb IH SCH (07:00)
[2022-12-31] MEDS: Wellbutrin SR 150 MG PO SCH (08:53)
[2022-12-31] MEDS: SYNTHROID 50 MCG PO SCH (08:54)
[2022-12-31] MEDS: CLARITIN 10 MG PO SCH (08:54)
[2022-12-31] MEDS: Pepcid 20 MG PO SCH (08:54)
[2022-12-31] MEDS: ENOXAPARIN SODIUM SQ SCH (09:04)
[2022-12-31 11:58] VITALS: BP 127/67; PULSE 90; O2SAT 96
--- NOTE | 2022-12-31 12:11 | PCM.DS ---
Discharge Summary Date of Admission: 12/30/22 00:20 Date of Discharge: 12/31/22 Admitting Physician: JAHAIRA PLASCENCIA MD Primary Care Provider: RAYSA GONZALEZ Allergies Allergies ketorolac tromethamine [From Toradol] Adverse Reaction (Intermediate, Verified 12/29/22 18:53) Hives/ aggressive Hospital Summary - Hospital Course Hospital Course: Improving with steroids and nebulizers. Anxiety component treated with Xanax (issuing short term prescription for 3 days). Patient will complete Medrol dose mary course at home (only took day 1 prior to presentation; will continue with day 2 onward) - Vitals & Intake/Output Vital Signs: Vital Signs Temperature 98.6 F 12/31/22 11:56 Pulse Rate 90 12/31/22 11:56 Respiratory Rate 16 12/31/22 11:56 Blood Pressure 127/67 12/31/22 11:56 O2 Sat by Pulse Oximetry 96 12/31/22 11:56 Intake & Output: Intake & Output 12/29/22 12/30/22 12/31/22 01/01/23 11:59 11:59 11:59 11:59 Intake Total 922 2160 Output Total 2400 Balance -1478 2160 Weight 82.4 kg - Lab Result Diagrams: 12/30/22 04:40 12/30/22 04:40 - Radiology Exams Ordered Rad Exams-Entire Visit: Radiology Procedures Category Date Time Status CHEST WITH CONTRAST [CT] Stat Exams 12/29/22 19:15 Completed - Procedures and Test Procedures and Tests throughout Hospitalization: Therapy Orders & Screens 12/29/22 19:25 Respiratory Therapy Assessment DAILY Comment: 12/30/22 01:58 RT Screen per Nursing Assess ONCE Comment: Protocol Order Physician Instructions: Greater than 3 points order RT Admission Screen Reason For Exam: Triggered on Admission Diagnosis: Shortness of breath, hyperventilation, respiratory alkalosis Diagnosis: Shortness of breath, hyperventilation, respiratory alkalosis Pneumonia: No Home O2: No Asthma: Yes CHF: No Home CPAP/BIPAP: No Home Nebs/MDI: Yes Total Points: 9 Discharge Exam General Appearance: no apparent distress, alert Neurologic Exam: alert, oriented x 3, cooperative, body maker II-XII nml as tested, normal mood/affect, nml cerebellar function, sensation nml Eye Exam: PERRL, EOMI, eyes nml inspection Ears, Nose, Throat Exam: normal ENT inspection Neck Exam: normal inspection, non-tender, supple, full range of motion Respiratory Exam: normal breath sounds, lungs clear Cardiovascular Exam: regular rate/rhythm, normal heart sounds Gastrointestinal/Abdomen Exam: soft Back Exam: normal range of motion Extremity Exam: normal inspection, normal range of motion Skin Exam: normal color Final Diagnosis/Problem List - Final Discharge Diagnosis/Problem (1) Asthmatic bronchitis Current Visit: No Status: Acute Assessment & Plan: Improving with steroids and nebulizers. Anxiety component treated with Xanax (issuing short term prescription for 3 days). Patient will complete Medrol dose mary course at home (only took day 1 prior to presentation; will continue with day 2 onward) Code(s): J45.909 - UNSPECIFIED ASTHMA, UNCOMPLICATED Telemedicine Encounter - Telemedicine Encounter Telemedicine Encounter: The entirety of this encounter was performed via Telemedicine" - Discharge Disposition: Home, Self-Care Condition: Stable Prescriptions: New Albuterol/Ipratropium 3ml Neb* [DUONEB 0.5-3 MG/3 ml Neb] 3 ml IH Q6HRT 30 Days #30 ALPRAZolam 0.25 MG [xanAX 0.25 MG] 0.25 mg PO Q6H PRN PRN 3 Days #12 tablet PRN Reason: Anxiety Continue Levothyroxine Sodium 25 Mcg [Synthroid 25 Mcg] 50 mcg PO DAILY Famotidine 20 mg [Pepcid 20 MG] 20 mg PO DAILY Bupropion HCl 150 mg Sr [Wellbutrin SR 150 MG] 300 mg PO DAILY Fexofenadine HCl [Xochitl Allergy] 180 mg PO DAILY Methylprednisolone 4 mg [Medrol 4 mg] See Rx Instructions .ROUTE .CO MPLEX Albuterol Sulfate 1 vial NEB Q4-6HPRN PRN PRN Reason: Shortness Of Breath Instructions: Asthma, Adult (DC) Follow up with: LUIS CATES NP, RN [NON-STAFF PHY W/O PRIVILEGES] - 01/12/23 10:00 am RAYSA GONZALEZ MD [Primary Care Provider] -
== END 2022-12-31 13:06 | disposition home or self-care (01) ==
LOC: ED 18:52 → MED SURG 12-30 00:20
PROVIDERS: ADMIT Internal Medicine Critical Care Medicine; ATTEND Family Medicine
DX: J45.909 Unspecified asthma, uncomplicated (principal); F41.9 Anxiety disorder, unspecified; R07.9 Chest pain, unspecified; E03.9 Hypothyroidism, unspecified; Z79.899 Other long term (current) drug therapy; Z20.828 Contact with and (suspected) exposure to other viral communicable diseases; Z87.891 Personal history of nicotine dependence
CPT/HCPCS: 0241U; 36000; 36415; 36600; 71260; 80053; 80143; 80179; 80307; 81001; 81025; 82077; 82375; 82803; 83605; 83880; 83930; 84484; 85025; 85027; 85379; 93268; 94640; 94760; 99285; J2930; J3475; Q3014; A9270-GY; G0378